=== PATIENT | male | born 1950 | race Caucasian/White ===

== ENCOUNTER 2020-02-15 10:35 | Outpatient (CLI) | payer MEDICARE, SELFPAY ==
--- NOTE | ~2020-02-15 | XR_ITS ---
XR foot LT min 3V DATE: 02/15/2020 11:07 INDICATION: Pain at base of fifth metatarsal bone TECHNIQUE: 4 views COMPARISON: None FINDINGS: There is mild plantar calcaneal enthesopathy without evidence of associated erosive change or periostitis. No fracture or dislocation, periosteal reaction or bone destruction. IMPRESSION: Plantar calcaneal enthesopathy Reviewed, dictated and finalized at location A.
== END 2020-02-15 10:36 | disposition home or self-care (01) ==
PROVIDERS: PCP Family Medicine Adolescent Medicine; Visit Provider Family Medicine Adolescent Medicine
DX: M79.672 Pain in left foot (principal); M77.32 Calcaneal spur, left foot
CPT/HCPCS: 73630

== ENCOUNTER → 2022-06-18 12:22 | Outpatient (CLI) | payer MEDICARE, SELFPAY ==
--- NOTE | ~2022-06-18 | XR_ITS ---
XR chest 2V 06/18/2022 12:32 Indication: Worsening cough Procedure: 2 view chest Comparison: 12/06/2008 Findings: Heart size normal. No focal air space disease, pulmonary edema, pleural effusion or suspect ed pneumothorax. Impression: 1: No acute cardiopulmonary disease. Reviewed, dictated and finalized at location A. Impression: 1: No acute cardiopulmonary disease.
== END ==
PROVIDERS: PCP Family Medicine Adolescent Medicine; Visit Provider Family Medicine Adolescent Medicine
DX: R05.9 Cough, unspecified (principal); R06.00 Dyspnea, unspecified
CPT/HCPCS: 71046

== ENCOUNTER 2022-06-30 08:01 | Outpatient (CLI) | payer MEDICARE, SELFPAY ==
--- NOTE | 2022-07-06 15:16 | WPDPFTINT ---
PFT Procedure Performed PFT Procedure Performed Plethysmography (Lung Vol) Diffusing Cap (DLCO) Flow Vol Loop Spirometry w/o Bronchodil PFT Interpretation DOS: 06/30/2022 REQUESTING: Dr Delarosa REASON FOR TESTING: Dyspnea PULMONARY FUNCTION TESTS Results are reliable and reproducible. Spirometry: FEV1 1.83 L, 54%, moderately decreased. FVC 3.58 L, 79% normal. FEV1/FVC is decreased 51% consistent with airflow obstruction. No bronchodilator was given. Lung volumes: Total lung capacity 8.16 L, 107%, normal. Residual volume 4.58 L, 172%, consistent with severe air trapping. RV/TLC 56% increased consistent with air trapping. Airway resistance is increased, 601% Diffusion: DLCO 21.6, 81%, normal. DLCO/VA 3.71, 101%, normal. Flow volume loop: There is coving of the expiratory limb which is consistent with airflow obstruction. IMPRESSION: There is a moderate obstructive ventilatory impairment, severe air trapping with normal diffusion. No bronchodilator was given. No prior study for comparison. Angela Montero MD
== END 2022-06-30 08:02 | disposition home or self-care (01) ==
LOC: ANHPFT 08:03
PROVIDERS: PCP Family Medicine Adolescent Medicine; Visit Provider Family Medicine Adolescent Medicine
DX: R06.00 Dyspnea, unspecified (principal)
CPT/HCPCS: 94375; 94726; 94729

== ENCOUNTER 2022-09-25 16:41 | Emergency (ER) | payer MEDICARE, SELFPAY ==
[2022-09-25 16:52] VITALS: BP 146/68; PULSE 96; RESP 16; TEMP 37; O2SAT 98
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
== END 2022-09-25 17:20 | disposition home or self-care (01) ==
PROVIDERS: Emergency Provider Nurse Practitioner; PCP Family Medicine Adolescent Medicine
DX: S71.112A Laceration without foreign body, left thigh, initial encounter (principal); W26.8XXA Contact with other sharp object(s), not elsewhere classified, initial encounter; Z87.891 Personal history of nicotine dependence; I25.10 Atherosclerotic heart disease of native coronary artery without angina pectoris; Z95.5 Presence of coronary angioplasty implant and graft
CPT/HCPCS: 12002; 99212; G0463

== ENCOUNTER 2024-06-26 14:45 | Outpatient (RCR) | payer MEDICARE, SELFPAY ==
--- NOTE | 2024-05-30 16:42 | PTOPEVAL1 ---
Assessment and note entered by Laura Roberts, PT, DPT Evaluation Information Assessment Status Evaluation Diagnosis L side lumbar radiculopathy ICD-10 Condition Codes (PT) Pain in low back M54.50,M54.16,Difficulty Walking R26.2 Subjective Information Pt reports a long history of L sided low back pain with pain going down into his L leg, to his calf. He states it has gotten worse in the last year. He got an MRI and x-ray done and was referred to pain management. He was going to have a procedure on his back and ended up getting diagnosed with leukemia. He is now in a good medication routine and it is well controlled. He ended up getting the back procedure, without any relief. He states in the year he has been more inactive, still has back pain, and is limited in how much he can walk. He states he can stand no longer than 10 mins at a time. He declines any falls. He would like to be able to walk for 15-20 mins. Reported Pain Level Pain Score 2: Self Report Assessment PT Clinical Summary Pt presents to therapy today for his initial evaluation with a diagnosis of L sided sciatic pain. Today he demonstrates limited ROM of his L knee and R hip passively, and has muscle tightness with limited range of his L piriformis. During ambulation he demonstrates a R midfoot collapse, limited knee extension, and a lateral trunk lean. Upon evaluation he has decreased lumbar mobility a had a asymmetric pelvis that was able to be corrected with muscle energy techniques. Skilled therapy services services are indicated to address the deficits noted above, to improved movement mechanics, to manage pain, and to progress towards therapy goals. Plan of Care Interventions Electrical Stimulation,Gait Training,Hot Pack/Cold Pack,Manual Therapy,Neuro Re-education,Patient/ Caregiver Educati,Therapeutic Activities, Therapeutic Exercise PT Services Indicated Yes Treatment Frequency and 2x/wk for 10 visits Duration These treatments will address the objective and functional deficits as defined above. The patient will be advanced safely and appropriately in order for the patient to progress towards his/her prior level of function. Additional exercises will be introduced and as well as a comprehensive home exercise program upon discharge, if needed, ?to ensure carryover of functional gains achieved in the clinic. This treatment plan has been reviewed and agreement upon by the patient.
--- NOTE | 2024-05-30 16:42 | OPREHPOC ---
Outpatient Therapy Plan of Care This is a Multidisciplinary Plan of Care that may contain components documented by all disciplines (PT, OT, and ST.) PT Problem 1 PT Problem #1 Knowledge Deficit PT Goal 1 Goal / Goal Update Pt to be IND with issued HEP PT Problem 2 PT Problem #2 Pain PT Goal 1 Goal / Goal Update Pt to report back pain no greater than 3/10 in the last week. Target Visit 10 PT Goal 2 Goal / Goal Update Pt to report 75% improvement in overall symptoms. Target Visit 10 PT Problem 3 PT Problem #3 Impaired Gait PT Goal 1 Goal / Goal Update Pt to demonstrate a equal stride length with upright trunk posture. Target Visit 10 PT Goal 2 Goal / Goal Update Pt to report being able to walk for 30 mins prior to needing to rest d/t pain. Target Visit 10 PT Problem 4 PT Problem #4 Impaired Flexibility PT Goal 1 Goal / Goal Update Pt to report equal stretch sensation on his piriformis. Target Visit 10 PT Problem 5 PT Problem #5 Impaired Sensation PT Goal 1 Goal / Goal Update Pt to decline radicular symptoms in the last week. Target Visit 10
--- NOTE | 2024-06-26 15:28 | PTOPDC ---
Assessment and note entered by Laura Roberts, PT, DPT Evaluation Information Assessment Status Discharge Diagnosis L side lumbar radiculopathy ICD-10 Condition Codes (PT) Pain in low back M54.50,M54.16,Difficulty Walking R26.2 Subjective Information Pt states therapy is not working, he believes his knee is the issue. He reports good compliance with his HEP and plans to continue these until he can get into an ortho to look at this knee. Reported Pain Level Pain Score 5: Self Report Assessment PT Clinical Summary Pt has completed 8 visits of skilled therapy without any notable changes. Pt plans to return to MD to determine next steps, D/c to HEP per request.
== END 2024-06-27 07:56 | disposition home or self-care (01) ==
LOC: ANHGOSHPT 14:45
PROVIDERS: PCP Family Medicine Adolescent Medicine; Visit Provider Family Medicine Adolescent Medicine
DX: M54.32 Sciatica, left side (principal); R29.898 Other symptoms and signs involving the musculoskeletal system
CPT/HCPCS: 97110; 97140; 97161; 97530

== ENCOUNTER 2024-11-15 08:00 | Outpatient (RCR) | payer MEDICARE, SELFPAY ==
--- NOTE | 2024-10-12 11:31 | OPREHPOC ---
Outpatient Therapy Plan of Care This is a Multidisciplinary Plan of Care that may contain components documented by all disciplines (PT, OT, and ST.) PT Problem 1 PT Problem #1 Knowledge Deficit PT Goal 1 Goal / Goal Update 1. Pt to be IND with issued HEP . Target Visit 10 PT Problem 2 PT Problem #2 Impaired Range of Motion PT Goal 1 Goal / Goal Update 1. Pt to improve active knee flexion ROM to 120 deg Target Visit 10 PT Problem 3 PT Problem #3 Impaired Gait PT Goal 1 Goal / Goal Update 1. pt to ambulate with equal heel strike during gait on level surface 2. Pt to report being able to walk for 1 mile without an increase in pain or limp 3. Pt to navigate stairs with a reciprocal pattern without need for UE support
--- NOTE | 2024-10-12 11:31 | PTOPEVAL1 ---
Assessment and note entered by Laura Roberts, PT, DPT Evaluation Information Assessment Status Evaluation Diagnosis L TKA ICD-10 Condition Codes (PT) Pain in left knee M25.562,Difficulty Walking R26.2 ,Abnormalities of gait and mobility R26.9,Weakness R53.1,Aftercare following joint replacement surgery Z47.1 Onset 09/07/24 Subjective Information Pt had a L TKA on 09/07/24. He states things are overall going pretty well. Has difficulty sleeping at night d/t pain, going up/down stairs, and walking far distances. He has been using a recumbent bike for 5 mins a day. He has 14 steps to get into his house from the garage. He is still taking prescription pain medication at night to sleep. Pt states he would like to be able to walk a mile for exercise. Reported Pain Level Pain Score 2: Self Report Assessment PT Clinical Summary Pt presents to therapy today for his initial evaluation following a R TKA on 09/07/24. Today he demonstrates a mild decrease in ROM from normal values, gait deviations, pitting edema, and decreased functional mobility. He demonstrates deviations during stairs climbing and ambulation on level ground. Skilled therapy services are indicated to address the deficits noted above, to improve mobility, and to improve functional mobility. Plan of Care Interventions Electrical Stimulation,Gait Training,Hot Pack/Cold Pack,Intermittent Compression Pump,Manual Therapy ,Neuro Re-education,Patient/Caregiver Education, Therapeutic Activities,Therapeutic Exercise PT Services Indicated Yes Treatment Frequency and 2x/wk for 8 visits Duration These treatments will address the objective and functional deficits as defined above. The patient will be advanced safely and appropriately in order for the patient to progress towards his/her prior level of function. Additional exercises will be introduced and as well as a comprehensive home exercise program upon discharge, if needed, ?to ensure carryover of functional gains achieved in the clinic. This treatment plan has been reviewed and agreement upon by the patient.
--- NOTE | 2024-10-25 10:45 | PCPTNOTE ---
Patient was canceled this date due to therapist being out of clinic with illness.
--- NOTE | 2024-11-07 09:23 | PCPTNOTE ---
Patient called & cancelled scheduled appointment this date due. He has been rescheduled.
--- NOTE | 2024-11-15 09:49 | OPREHPOC ---
Outpatient Therapy Plan of Care This is a Multidisciplinary Plan of Care that may contain components documented by all disciplines (PT, OT, and ST.) PT Problem 1 PT Problem #1 Knowledge Deficit PT Goal 1 Goal / Goal Update 1. Pt to be IND with issued HEP . Target Visit 10 Progress Met PT Problem 2 PT Problem #2 Impaired Range of Motion PT Goal 1 Goal / Goal Update 1. Pt to improve active knee flexion ROM to 120 deg 11/15/24: 1. progressing, 110 deg Target Visit 10 Progress Partially Met PT Problem 3 PT Problem #3 Impaired Gait PT Goal 1 Goal / Goal Update 1. pt to ambulate with equal heel strike during gait on level surface 2. Pt to report being able to walk for 1 mile without an increase in pain or limp 3. Pt to navigate stairs with a reciprocal pattern without need for UE support 11/15/24: 1. met 2. progressing 3. progressing Progress Partially Met
--- NOTE | 2024-11-15 09:49 | PTOPDC ---
Assessment and note entered by Laura Roberts, PT, DPT Evaluation Information Assessment Status Discharge Diagnosis L TKA ICD-10 Condition Codes (PT) Pain in left knee M25.562,Difficulty Walking R26.2 ,Abnormalities of gait and mobility R26.9,Weakness R53.1,Aftercare following joint replacement surgery Z47.1 Onset 09/07/24 Subjective Information Pt states his knee is doing pretty well, he reports full movement with some stiffness in the morning. Has some mild discomfort with stairs. States he is still limited compared to where he would like to be. His back and hip limit his activity. States prior he was walking a mile, and now can only tolerate about 4 mins of walking. Reported Pain Level Pain Score 0: Self Report Assessment PT Clinical Summary Pt presents to therapy today for his progress report following 8 visits of skilled therapy following a R TKA on 09/07/24. Today he demonstrates good functional knee ROM and strength . He continues to have gait deviations but this is limited by his R hip. His HEP was progressed to address deficits of hip strength and ROM. He has met or progressed well towards all of his therapy goals and no longer requires skilled services. He will be discharged at this time. Plan of Care PT Services Indicated No
== END 2024-12-26 10:28 | disposition home or self-care (01) ==
LOC: ANHGOSHPT 08:00
PROVIDERS: PCP Family Medicine Adolescent Medicine
DX: Z47.1 Aftercare following joint replacement surgery (principal); Z96.652 Presence of left artificial knee joint
CPT/HCPCS: 97016; 97110; 97112; 97161; 97530

== ENCOUNTER 2025-08-01 05:39 | Emergency (ER) | payer MEDICARE, SELFPAY ==
--- NOTE | ~2025-08-01 | CT_ITS ---
CT ABDOMEN AND PELVIS WITHOUT CONTRAST Clinical History: right flank pain Comparison: CTA abdomen pelvis 11/07/2015 Technique: Unenhanced axial images lung bases to symphysis pubis Coronal, sagittal reformats CT images acquired with automatic exposure control for dose reduction DLP: 696 mGy-cm Findings: Without intravenous contrast, sensitivity for detecting visceral parenchymal abnormalities decreased. Lung bases: Clear. Visualized heart and pericardium: Coronary artery calcification. Liver: Small cyst segment 2. Gallbladder: Stones. Spleen: Unremarkable. Pancreas: Unremarkable. Adrenal glands: Unremarkable. Kidneys: Right kidney- No hydronephrosis. No renal stones. Left kidney- No hydronephrosis. 2 mm calcification appears vascular. Distal esophagus/stomach: Unremarkable. Small bowel loops: Normal caliber and wall thickness. Colon: Normal caliber and wall thickness. Appendix not seen. Nodes: No enlarged nodes. Peritoneum: No ascites. No free intraperitoneal air. Urinary bladder: Unremarkable. Prostate: Unremarkable. Bones: No acute bony abnormality. Soft tissues: Right inguinal hernia repair. Unopacified abdominal aorta: No aneurysmal dilatation. Bifurcating endograft. Atherosclerotic disease. IMPRESSION: 1. No acute findings. Reviewed, dictated and finalized at location R. CAL INSTRUMENTS ASSEMBLER IMPRESSION: 1. No acute findings.
[2025-08-01 06:07] LABS: Hematocrit 38.9 % (42.0-52.0); Hemoglobin 13.1 g/dL (14.0-18.0); Immature Granulocyte Percent A 0.4 % (0-0.5); Lymphocytes Absolute Auto 3.21 K/mm3 (0.9-3.2); Mean Corpuscular HGB Conc 33.7 g/dl (32-36); Mean Corpuscular Hemoglobin 32.4 pg (26-34); Mean Corpuscular Volume 96.3 fl (80-100); Nucleated Red Blood Cells Absolute Auto 0.000 K/mm3 (0.0-0.012); Nucleated Red Blood Cells Perc 0.0 % (0.0-0.2); Platelet Count Result 181 k/mm3 (150-375); Red Blood Count 4.04 M/mm3 (4.6-6.20); White Blood Count 7.9 K/mm3 (4.5-10.0)
[2025-08-01 06:26] LABS: Alanine Aminotransferase 22 U/L (6-50); Albumin Level 4.5 g/dL (3.5-5.1); Alkaline Phosphatase 69 U/L (38-126); Anion Gap 9 mmol/L (4-12); Aspartate Amino Transferase 35 U/L (17-59); Bilirubin,Total 0.8 mg/dL (0.2-1.3); Blood Urea Nitrogen 26 mg/dL (9-20); Calcium 9.2 mg/dL (8.4-10.2); Carbon Dioxide 28 mmol/L (22-30); Chloride 103 mmol/L (98-107); Estimated CRCL calculation 60 ml/min; Estimated Glomerular Filt Rate > 60; Glucose 115 mg/dL (65-110); Lipase 107 U/L (23-300); Potassium 3.8 mmol/L (3.4-5.0); Sodium 140 mmol/L (137-145); Total Protein 7.5 g/dL (6.3-8.2)
[2025-08-01 06:55] LABS: Add Urine Microscopic? NO; Appearance Urine Clear (Clear); Glucose Urine UA Negative (Negative); Leukocyte Esterase Ur Negative LEU/UL (Negative); Nitrate Urine Negative (Negative); Specific Grav Ur 1.021 (1.001-1.035)
[2025-08-01 07:16] VITALS: BP 166/79; PULSE 72; RESP 18; O2SAT 100
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
--- OUTSIDE RECORDS SUMMARY | 2025-08-01 07:24 | XMS_ITS | Encounter Summary ---
Author Organization [facility] Address [address] [place] [address] Care Team Providers Care Intermediate Project Manager Name Role Phone Unavailable Primary Care Provider Unavailabl e Encounter Details Date Type Department Care Team (Late st Contact Info) Description 01/08/2021 Lab Requisition [facility] Derm[facility] Lab [address] [place] [address] Lane Almonte MD [address] [place] [address] Social History Tobacco Use Types Packs/Day Years Used Date Smoking Tobacco: Never Assessed Sex and Gender Information Value Date Recorded Sex Assigned at Not on file 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 Gender Identity Not on file Sexual Orientation Not on file documented as of this encounter Plan of Treatment Not on file documented as of this encounter Procedures Procedure Name Priority Date/Time Associated Diagnosis Comments DERMATOPATHOLOGY Routine 01/07/2021 12:0 0 AM CDT documented in this encounter Results * DERMATOPATHOLOGY (01/07/2021 12:00 AM CDT) Case Report Dermatopathology Report Case: [id number] Authorizing Provider: Lane Almonte MD Collected: 01/07/2021 12:00 AM Ordering Location: [facility] Derm[facility] Received: 01/08/2021 12:38 PM Pathologist: Anju Flores MD Specimen: Skin, right mid lat back 2:30 PM CDT DERMATOPATHOLOGY LABORATORY Final Diagnosis Specimen A. SKIN, right mid lat back: SQUAMOUS CELL CARCINOMA IN SITU, PRESENT AT THE BASE OF THE SPECIMEN (D04.5) EPIDERMAL NECROSIS SUGGESTIVE OF EXCORIATION (L98.499) (see microscopic description and comment) 04/29/202 1 2:30 PM CDT DERMATOPATHOLOGY LABORATORY at 1430 CDT Clinical History R/O ISK vs other 1 2:30 PM CDT DERMATOPATHOLOGY LABORATORY Gross Description Specimen A: Received is one formalin filled container labeled with the patient's name and designated right mid lat back. The specimen consists of a shave biopsy measuring 9x7x2 and 7x5x3 mm. Jar 0. 1 2:30 PM CDT DERMATOPATHOLOGY LABORATORY Microscopic Description Specimen A. SKIN, right mid lat back: The epidermis shows parakeratosis, full thickness disorderly maturation of keratinocytes, mitoses at different levels, and dyskeratotic cells. The lesion extends to the base of the biopsy. The epidermis is focally necrotic and covered with a scale-crust. There is fibrin at the base. COMMENT: An invasive squamous cell carcinoma cannot be ruled out. 1 2:30 PM CDT DERMATOPATHOLOGY LABORATORY Disclaimer An external and internal positive and negative controls are appropriate for the histochemical, immunohistochemical and immunofluorescence stain(s) in this case (if any), except where stated explicitly. The performance characteristics of the stain(s) cited in this report were developed and its performance characteristic determined by the Dermatopathology Laboratory at [facility], directed by Dr. Leatha Anderson. These tests need not be, and therefore are not, approved by the [place] Food and Drug Administration. The tests are used for clinical purposes. Billing Codes Specimen Charges Stain Charges 52943 1 1 2:30 PM CDT DERMATOPATHOLOGY LABORATORY Embedded Images 1 2:30 PM CDT DERMATOPATHOLOGY LABORATORY Pathology/Cytolog y TISSUE SPECIMEN FROM SKIN / Unknown 01/07/2021 01/08/2021 12:[address] Almonte MD LAB - PATHOLOGY/CYTOLOGY ORD ERABLES Final Result DERMATOPATHOLOGY LABORATORY [facility] - Department of Dermatology [address], [address] [phone] documented in this encounter Visit Diagnoses Not on filedocumented in this encounter
--- OUTSIDE RECORDS SUMMARY | 2025-08-01 07:25 | XMS_ITS ---
Author Organization [facility] Address [address] [place] [address] Care Team Providers Care Case Maker Name Role Phone Zachariah Mcintosh MD Unavailable [phone] Lester Delarosa MD Primary Care Prov ider Lydia Ram NP Unavailable Jason Solis MD Unavailable [phone] Larry Henry MD Unavailable [phone] Active Problems Problem Noted Date Diagnosed Date Arthritis of left knee 09/07/2024 Primary osteoarthritis of left knee 07/13/2024 Primary osteoarthritis of right knee 05/22/2024 Sacroiliitis 03/08/2024 Lumbar radiculopathy 12/09/2023 CML (chronic myeloid leukemia) 12/06/2023 Other chronic pain 11/29/2023 Spinal stenosis of lumbar re gion with neurogenic claudication 11/29/2023 Radiculopathy, lumbosacral region 11/29/2023 Mixed hyperlipidemia 08/29/2021 Ectopic beats 02/21/2021 Preoperative clearance 08/16/2020 Obesity (BMI 30.0-34.9) 07/23/2017 Abdominal aortic aneurysm (AAA) without rupture 12/03/2016 Assessment & Plan (07/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 Continue aspirin Lipitor and good blood pressure control. Follow-up in 1 year for annual surveillance History of coronary artery stent placement 06/23 Overview (12/14/2018): Patient had a right coronary artery stent placement in 2008. Last stress test in April 2016 is negative for ischemia. Abnormal EKG 06/22/2016 Aortic aneurysm 06/22/2016 Overview (12/14/2018): Status post repair and followed by Dr. Lou Assessment & Plan (07/14/2022 2:47 PM CDT): Patient is status post aortic repair on 06/04/2010. His previous aneurysm measured 3.0 x 3.2 CTA and currently measures 3.3 x 3.3 cm by CTA. He denies any abdominal side or back pain or any claudication pain to the lower extremities. He remains compliant with medications. Seen with Dr. Lou. Plan: Return in 1 year for routine surveillance with an aortic duplex. Peripheral vascular disease 06/22/2016 CAD (coronary artery disease) 06/22/2016 Hypertension 07/22/2012 Overview (12/14/2018): Hypertension, benign Coronary arteriosclerosis in [place] artery 07/22 Overview (12/17/2016): Coronary atherosclerosis of [place] coronary artery Current Treatment and Therapy Plans Asciminib PO 28 Day Cycles - CML* Plan Start Date:05/21/2025 Plan Provider:Jason Solis MD Linked Problems CML (chronic myeloid leukemi a) Treatment Medications Current Day (Day 1 , Cycle 1 - Planned for 05/21/2025) Next Day (Day 15, Cycle 1 - Planned for 06/04/2025) asciminib (SCEMBLIX) asciminib (SCEMBLIX ) 40 mg tablet No medications scheduled. Imatinib Daily - CML* Plan Start Date:01/23/2024 Plan Provider:Jason Slois MD Linked Problems CML (chronic myeloid leukemi a) Treatment Medications Current Day (Day 1 , Cycle 8 - Planned for 05/07/2025) Next Day (Additional Day, Cycle 8 - Planned for 05/14/2025) imatinib (GLEEVEC) No medications scheduled. No medications scheduled. Past Treatment and Therapy Plans Oncology Chemotherapy Treatment Plan Name Start Date Discontinue Date Treatment Medications Discontinue Reason Plan Provider Cycles Dasatinib Daily - CML 12/06/2023 01/24/2024 daSATinib (SPRYCEL) Toxicity/Compl ication Will, Jason Mehta MD 2 of 12 cycles started Lifetime Dose Tracking * Chemical Lifetime Dose Automatic Entry Manual Entr y Fluoro Time 1.653 minutes 1.653 minutes 0 minutes Air kerma at the reference point (Ka,r) 55.707 mGy 5 5.707 mGy 0 mGy DLP 3,688 mGycm 3,688 mGycm 0 mGycm Resolved Problems Problem Noted Date Diagnosed Date Resolved Date Dyslipidemia 01/20/2019 08/29/2021
--- OUTSIDE RECORDS SUMMARY | 2025-08-01 07:25 | XMS_ITS | Encounter Summary ---
Author Organization [facility] Care Team Providers Care Dobie Worker Name Role Phone Lester Delarosa MD Primary Care Prov ider Zachariah Mcintosh MD Unavailable [phone] Larry Henry MD Primary Care Provider [phone] Lester Delarosa MD Primary Care Prov ider Uy, Jason Mehta MD Unavailable [phone] Lydia Ram NP Unavailable [phone] Uy, Jason Mehta MD Unavailable [phone] Uy, Jason Mehta MD Unavailable [phone] Larry Henry MD Unavailable [phone] Encounter Details Date Type Department Care Team (Latest Contact Info) Description 12/03/2015 Orders Only [facility] CLINCON[facility] ProviderPatricia MD [address] [place] [address] Social History Tobacco Use Types Packs/Day Years Used Date Smoking Tobacco: Former Cigarettes Q uit: 09/13/2007 Alcohol Use Standard Drinks/Week Comments Yes 0 (1 standard drink = 0.6 oz pur e alcohol) Sex and Gender Information Value Date Recorded Sex Assigned at Not on file 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 us Historical Provider [facility] SHAHANA BEJARANO Final Result documented in this encounter Visit Diagnoses Not on filedocumented in this encounter Additional Health Concerns Infection Onset Date Last Indicated Resolved Time COVID: Suspected 01/18/2024 01/18/2024 01/18/2024 6:18 PM CDT documented as of this encounter Care Teams Dobie Worker Relationship Specialty Start Date End Date Lester Delarosa MD PCP - General 04/17/13 10/16/20 Larry Henry MD [address] [place] [address] [place] [address] PCP - General 10/17/20 10/28/20 Lester Delarosa MD PCP - General 10/29/20 Zachariah Mcintosh MD [address] [place] [address] [address] Consulting Physician Cardiology 09/09/20 Jason Solis MD [address] [place] [address] [place] [address] Medical Oncologist/Strategic Intelligence Officer Medical Oncology 12/29/23 06/18/25 Lydia Ram, [place] [address] [address] Nurse Practitioner Watch Crystal Cutter 05/09/24 Jason Solis MD [address] [place] [address] IM BONE MARROW TRANSPLANT, 5TH, [address] [place] [address] Medical Oncologist/Strategic Intelligence Officer Medical Oncology 07/27/24 06/18/25 Jason Solis MD [address] DIV IM BONE MARROW TRANSPLANT, [address] [place] [address] Medical Oncologist/Strategic Intelligence Officer Medical Oncology 07/27/24 Larry Henry MD [address] [address] Consulting Physician Orthopedic Surgery 09/08/24 documented as of this encounter
--- OUTSIDE RECORDS SUMMARY | 2025-08-01 07:25 | XMS_ITS | Encounter Summary ---
Author Organization [facility] Care Team Providers Care Real Estate Sales Manager Name Role Phone Lester Delarosa MD Primary Care Prov ider Zachariah Mcintosh MD Unavailable [phone] Larry Henry MD Primary Care Provider [phone] Lester Delarosa MD Primary Care Prov ider Uy, Jason Mehta MD Unavailable [phone] Lydia Ram NP Unavailable [phone] Uy, Jason Mehta MD Unavailable [phone] Uy, Jason Mehta MD Unavailable [phone] Larry Henry MD Unavailable [phone] Encounter Details Date Type Department Care Team (Latest Contact Info) Description 12/14/2015 Orders Only [facility] CLINCONV ProviderPatricia MD [address] [place] [address] Social History Tobacco Use Types Packs/Day Years Used Date Smoking Tobacco: Former Cigarettes Q uit: 09/13/2007 Alcohol Use Standard Drinks/Week Comments Yes 0 (1 standard drink = 0.6 oz pur e alcohol) Sex and Gender Information Value Date Recorded Sex Assigned at Not on file 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 us Historical Provider Final Res ult documented in this encounter Visit Diagnoses Not on filedocumented in this encounter Additional Health Concerns Infection Onset Date Last Indicated Resolved Time COVID: Suspected 01/18/2024 01/18/2024 01/18/2024 6:18 PM CDT documented as of this encounter Care Teams Real Estate Sales Manager Relationship Specialty Start Date End Date Lester Delarosa MD PCP - General 04/17/13 10/16/20 Larry Henry MD [address] [address] [place] [address] [place] [address] PCP - General 10/17/20 10/28/20 Lesetr Delarosa MD PCP - General 10/29/20 Zachariah Mcintosh MD [address] [facility] [facility] [place] [address] [address] Consulting Physician Cardiology 09/09/20 Jason Solis MD [address] [facility] [facility] [facility] [address] [place] [address] [place] [address] Medical Oncologist/Physical Therapy Aid Medical Oncology 12/29/23 06/18/25 [place] [address] [address] Nurse Practitioner Belt And Link Assembly Supervisor 05/09/24 Jason Solis MD [address] [place] [address] IM BONE MARROW TRANSPLANT, 5TH, [address] [address] Medical Oncologist/Physical Therapy Aid Medical Oncology 07/27/24 06/18/25 Jason Solis MD [address] DIV IM BONE MARROW TRANSPLANT, [address] [place] [address] Medical Oncologist/Physical Therapy Aid Medical Oncology 07/27/24 Larry Henry MD [facility] [address] [address] Consulting Physician Orthopedic Surgery 09/08/24 documented as of this encounter
--- OUTSIDE RECORDS SUMMARY | 2025-08-01 07:25 | XMS_ITS | Clinical Summary ---
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 with mild cord compression. No visible cord signal abnormality on motion limited images. Correlate clinically for myelopathy. Severe bilateral neural foraminal stenosis at C4-C5 with exiting C5 nerve root impingements caused by uncovertebral arthropathy. Dictated by: Jose De Jesus Camacho MD The radiology attending physician has personally reviewed this study, and had reviewed and/or edited this written report and agrees with it. Electronically signed by: Bahman Jimenez MD Narrative 07/14/2025 8:11 AM CDT EXAMINATION: Magnetic resonance imaging (MRI) of the cervical spine without contrast HISTORY: Evaluate for cervical spinal stenosis TECHNIQUE: Multiplanar multi-weighted MRI of the cervical spine was performed without intravenous contrast using the standard protocol. COMPARISON: None Available. FINDINGS: Multilevel stepwise retrolisthesis from C3 to C5. No suspicious marrow signal abnormality. No acute fracture is identified. The craniocervical junction is normal. The visualized portions of the skull base and the posterior fossa are normal. No definite spinal cord signal abnormality. Multilevel disc desiccation and up to severe disc height loss, most pronounced at C3-C4 and C4-C5. No soft tissue abnormality is identified. Normal signal voids are present in the vertebral arteries. C2-C3: Posterior disc osteophyte complex There is moderate left facet arthropathy. There is moderate bilateral uncovertebral joint disease. There is moderate right and severe left neuroforaminal stenosis. There is no spinal canal stenosis. C3-C4: Posterior disc osteophyte complex with superimposed central disc protrusion. And ligamentum flavum infolding. There is mild bilateral facet arthropathy. There is moderate bilateral uncovertebral joint disease. There is moderate bilateral neuroforaminal stenosis. There is severe spinal canal stenosis with mild cord compression. C4-C5: Posterior disc osteophyte complex with superimposed central through right subarticular disc protrusion. Ligamentum flavum infolding. There is moderate bilateral facet arthropathy. There is severe bilateral uncovertebral joint disease. There is severe bilateral neuroforaminal stenosis. There is severe spinal canal stenosis with mild focal cord compression. C5-C6: Posterior disc osteophyte complex. There is moderate bilateral facet arthropathy. There is moderate bilateral uncovertebral joint disease. There is moderate bilateral neuroforaminal stenosis. There is mild spinal canal stenosis. C6-C7: Posterior disc osteophyte complex. There is mild bilateral facet arthropathy. There is moderate bilateral uncovertebral joint disease. There is mild bilateral neuroforaminal stenosis. There is mild spinal canal stenosis. C7-T1: The disk is normal in configuration. There is mild bilateral facet arthropathy. There is no uncovertebral joint disease. There is no neuroforaminal stenosis. There is no spinal canal stenosis. Procedure Note Bahman Jimenez MD PhD - 07/14/2025 EXAMINATION: Magnetic resonance imaging (MRI) of the cervical spine without contrast HISTORY: Evaluate for cervical spinal stenosis TECHNIQUE: Multiplanar multi-weighted MRI of the cervical spine was performed without intravenous contrast using the standard protocol. COMPARISON: None Available. FINDINGS: Multilevel stepwise retrolisthesis from C3 to C5. No suspicious marrow signal abnormality. No acute fracture is identified. The craniocervical junction is normal. The visualized portions of the skull base and the posterior fossa are normal. No definite spinal cord signal abnormality. Multilevel disc desiccation and up to severe disc height loss, most pronounced at C3-C4 and C4-C5. No soft tissue abnormality is identified. Normal signal voids are present in the vertebral arteries. C2-C3: Posterior disc osteophyte complex There is moderate left facet arthropathy. There is moderate bilateral uncovertebral joint disease. There is moderate right and severe left neuroforaminal stenosis. There is no spinal canal stenosis. C3-C4: Posterior disc osteophyte complex with superimposed central disc protrusion. And ligamentum flavum infolding. There is mild bilateral facet arthropathy. There is moderate bilateral uncovertebral joint disease. There is moderate bilateral neuroforaminal stenosis. There is severe spinal canal stenosis with mild cord compression. C4-C5: Posterior disc osteophyte complex with superimposed central through right subarticular disc protrusion. Ligamentum flavum infolding. There is moderate bilateral facet arthropathy. There is severe bilateral uncovertebral joint disease. There is severe bilateral neuroforaminal stenosis. There is severe spinal canal stenosis with mild focal cord compression. C5-C6: Posterior disc osteophyte complex. There is moderate bilateral facet arthropathy. There is moderate bilateral uncovertebral joint disease. There is moderate bilateral neuroforaminal stenosis. There is mild spinal canal stenosis. C6-C7: Posterior disc osteophyte complex. There is mild bilateral facet arthropathy. There is moderate bilateral uncovertebral joint disease. There is mild bilateral neuroforaminal stenosis. There is mild spinal canal stenosis. C7-T1: The disk is normal in configuration. There is mild bilateral facet arthropathy. There is no uncovertebral joint disease. There is no neuroforaminal stenosis. There is no spinal canal stenosis. 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 No visible cord signal abnormality on motion limited images. Correlate clinically for myelopathy. Severe bilateral neural foraminal stenosis at C4-C5 with exiting C5 nerve root impingements caused by uncovertebral arthropathy. Dictated by: Jose De Jesus Camacho MD The radiology attending physician has personally reviewed this study, and had reviewed and/or edited this written report and agrees with it. Electronically signed by: Bahman Jimenez MD [facility]ED[facility] Final Result * CT Thoracic Spine WO Contrast (07/13/2025 4:24 PM CDT) Anatomical Region Laterality Modality Spine N/A Computed Tomogra phy 07/13/2025 5:01 PM CDT Impressions 07/13/2025 5:10 PM CDT 1. Mild degenerative changes of the thoracic spine as described above. 2. Two right upper lobe nodules, including an unchanged 9 mm solid nodule and a slightly increased 7 mm groundglass nodule. Consider repeat chest CT in 6-12 months to assess stability. Dictated by: Dank Kim MD The radiology attending physician has personally reviewed this study, and had reviewed and/or edited this written report and agrees with it. Electronically signed by: Isrrael Brewer M.D. Narrative 07/13/2025 5:10 PM CDT EXAMINATION: CT of the thoracic spine without contrast HISTORY: Mid back pain TECHNIQUE: CT of the thoracic spine was performed according to standard protocol without intravenous contrast. COMPARISON: Thoracic spine MRI 05/24/2025, chest CT 01/18/2024 FINDINGS: There are 12 rib-bearing thoracic vertebra. Mild thoracic levocurvature. There is no acute fracture. Vertebral bodies are normal in height without compression fractures. Mild multilevel intervertebral disc height loss. 7 mm groundglass nodule in the right upper lobe (series 4 image 141), slightly increased compared to prior chest CT. Unchanged solid 9 mm right upper lobe nodule (series 4 image 119). Left upper lobe calcified granuloma. Biapical pleural-parenchymal scarring. Atherosclerotic calcifications of the thoracic aorta. Partially imaged endovascular stent graft in the abdominal aorta. Cholelithiasis without evidence of cholecystitis. Severe coronary artery calcifications. Partially imaged carotid artery bifurcations. Chronic right posterior 3rd and 5th-6th rib fractures. The disks are normal in configuration. There is mild multilevel facet hypertrophy. There is no high-grade neuroforaminal stenosis. There is no spinal canal stenosis. Partially imaged degenerative changes in the lower cervical spine. Procedure Note Isrrael Brewer MD PhD - 07/13/2025 EXAMINATION: CT of the thoracic spine without contrast HISTORY: Mid back pain TECHNIQUE: CT of the thoracic spine was performed according to standard protocol without intravenous contrast. COMPARISON: Thoracic spine MRI 05/24/2025, chest CT 01/18/2024 FINDINGS: There are 12 rib-bearing thoracic vertebra. Mild thoracic levocurvature. There is no acute fracture. Vertebral bodies are normal in height without compression fractures. Mild multilevel intervertebral disc height loss. 7 mm groundglass nodule in the right upper lobe (series 4 image 141), slightly increased compared to prior chest CT. Unchanged solid 9 mm right upper lobe nodule (series 4 image 119). Left upper lobe calcified granuloma. Biapical pleural-parenchymal scarring. Atherosclerotic calcifications of the thoracic aorta. Partially imaged endovascular stent graft in the abdominal aorta. Cholelithiasis without evidence of cholecystitis. Severe coronary artery calcifications. Partially imaged carotid artery bifurcations. Chronic right posterior 3rd and 5th-6th rib fractures. The disks are normal in configuration. There is mild multilevel facet hypertrophy. There is no high-grade neuroforaminal stenosis. There is no spinal canal stenosis. Partially imaged degenerative changes in the lower cervical spine. IMPRESSION: 1. Mild degenerative changes of the thoracic spine as described above. 2. Two right upper lobe nodules, including an unchanged 9 mm solid nodule and a slightly increased 7 mm groundglass nodule. Consider repeat chest CT in 6-12 months to assess stability. Dictated by: Dank Kim MD The radiology attending physician has personally reviewed this study, and had reviewed and/or edited this written report and agrees with it. Electronically signed by: Isrrael Brewer M.D. [facility] IMG CT PROCEDURES Final Result * DEXA Axial Skeleton Bone Density Multi Site (07/05/2025 1:40 PM CDT) Anatomical Region Laterality Modality Body N/A Radiographic Kamille ging Narrative 07/05/2025 7:55 PM CDT Patient Name: Osito Fan Date of : 1950 Date of scan: 07/05/2025 Bone mineral density was performed on a gloStream Discovery Densitometer. Based on machine cross-calibration and precision studies the least significant changes of this densitometer is 0.024 g/cm2 at the spine, 0.020 g/cm2 at the total proximal femur, and 0.014g/cm2 at the forearm. HISTORY: This is a 75 y.o. male with a history of leukemia. He reports that he has quit smoking. His smoking use included cigarettes. He started smoking about 40 years ago. He has a 45.6 pack-year smoking history. He has never used smokeless tobacco. Currently on treatment with calcium and vitamin D and current complaint of back pain and leg pain. INDICATIONS: Screening for osteoporosis and male over age 70. FINDINGS: BONE MINERAL DENSITY OF THE LUMBAR SPINE Bone Mineral Density (BMD) of the lumbar spine was measured from L1-L4 and the average density was calculated to be 1.297 gm/cm2. This corresponds to a T-score (standard deviations from the mean of young adults) of 1.9. There is no previous study available for comparison. BONE MINERAL DENSITY OF THE PROXIMAL FEMUR Bone Mineral Density (BMD) of the left hip total was found to be 0.745 gm/cm2. This corresponds to a T-score standard deviations from the mean of young adults of -1.9. Femoral neck is 0.643 gm/cm2 with a T-score (standard deviations from the mean of young adults) of -2.1. There is no previous study available for comparison. BONE MINERAL DENSITY OF THE FOREARM Bone Mineral density (BMD) of the right proximal 1/3 of the radius measures 0.784 gm/cm2. This corresponds to a T-score (standard deviations from the mean of young adults) of -0.6. There is no previous study available for comparison. A forearm bone density study was performed in addition to the routine study due to bilateral hip replacements and department forearm protocol SUMMARY: Bone mineral density shows evidence of low bone mass at the proximal femur and moderately increased fracture risk (Osteopenia). ADDITIONAL COMMENTS: Postmenopausal Women and Men Over 50: Diagnostic criteria: Osteoporosis: BMD at or below -2.5 T-score; Osteopenia (low bone mass): BMD between -1.0 and -2.5 T-score. If the patient has a history of a fragility fracture, a fracture that occurred with trauma equivalent to a fall from a standing position or less, then the diagnosis is osteoporosis regardless of bone density. The history and data sections of the bone mineral density scan were prepared by Raya Lopez(Oumar) BERTO who is accredited by the International Society of Clinical Densitometry. The overall patient assessment and scan interpretation were performed by Elizabeth El M.D. who is certified by the International Society of Clinical Densitometry. [id number] Rebeka Tobin [facility]ED[facility] Final Result * PSA diagnostic (06/26/2025 9:28 AM CDT) PSA-Total 0.95 <=6.20 ng/mL Comment: Interpretive Data AGE SEX REFERENCE INTERVAL 0 minutes-150 years Female None 0 minutes-49 years Male None 50-59 years Male 0-3.90 60-69 years Male 0-5.40 70-79 years Male 0-6.20 80-150 years Male 0-6.20 The Sravanthi PSA Total assay procedure was used. Results from different manufacturers or methods may not be comparable. Serial testing should be performed using the same method. Current interpretive data last revised 22. Blood 06/26/2025 9:28 AM CDT 06/26/2025 2:28 PM CDT Lester Delarosa MD LAB BLOOD ORDERABL ES Final Result [id number] [id number] [facility] Department [place] [address] * Hemoglobin A1c (06/26/2025 9:28 AM CDT) Hgb A1C 5.6 4.0 - 5.6 % Estimated Average Glucose 114 mg/dL LISHA ANAYA Comment: The ADA recommends reporting an estimated Average Glucose (eAG) with all Hemoglobin A1c results using the equation derived from a study of 507 normal and diabetic adults. Minority populations were underrepresented and children were not included. (Diabetes Care 31:3520-9024, 2008). The eAG is not equivalent to a fasting glucose. Blood 06/26/2025 9:28 AM CDT 06/26/2025 11:18 AM CDT Lester Delarosa MD LAB BLOOD ORDERABL ES Final Result [facility] [address] [facility] Department [place] [address] * eGFR (06/18/2025 12:28 PM CDT) eGFR 83 >=60 mL/min/1. 73 m2 Comment: Interpretive Data Reference Interval Normal >/= 90 mL/min/1.73m2 Mildly decreased* 60 - 89 mL/min/1.73m2 Mildly to moderately decreased 45 - 59 mL/min/1.73m2 Moderately to severely decreased 30 - 44 mL/min/1.73m2 Severely decreased 15 - 29 mL/min/1.73m2 Kidney Failure < 15 mL/min/1.73m2 *Relative to young adult level Estimated glomerular filtration rate is determined by the 2020 CKD-EPI equation recommended by the National Kidney Foundation (A Unifying Approach to GFR Estimation: Recommendations of the NKF-ASK Task Force on Reassessing the Inclusion of Race in Diagnosing Kidney Disease, JASN 202). The CKD-EPI equation should not be used for patients with unstable renal function and has not been validated in children and those over 70. Current interpretive data was last reviewed 2021. Blood 06/18/2025 12:2 8 PM CDT 06/18/2025 12:36 PM CDT Jason Solis MD LAB BLOOD ORDERABLES Final Re sult Performing Organization Address [facility] [place] [address] * Uric acid (06/18/2025 12:28 PM CDT) Uric acid 6.0 3.0 - 8.0 mg/dL Blood 06/18/2025 12:2 8 PM CDT 06/18/2025 12:36 PM CDT Jason Solis MD LAB BLOOD ORDERABLES Final Re sult Performing Organization Address [facility] [place] [address] * Lipase (06/18/2025 12:28 PM CDT) Lipase 35 10 - 99 Units/L Blood 06/18/2025 12:2 8 PM CDT 06/18/2025 12:36 PM CDT Jason Solis MD LAB BLOOD ORDERABLES Final Re sult Performing Organization Address [facility] Co de Phone Number [facility] [place] [address] * Lactate dehydrogenase (LD) (06/18/2025 12:28 PM CDT) Lactate dehydrogenase (LDH) 160 100 - 250 Units/L Blood 06/18/2025 12:2 8 PM CDT 06/18/2025 12:36 PM CDT Jason Solis MD LAB BLOOD ORDERABLES Final Re sult Performing Organization Address [facility] Co de Phone Number [facility] [place] [address] * Amylase (06/18/2025 12:28 PM CDT) Amylase 55 30 - 99 Units/L Blood 06/18/2025 12:2 8 PM CDT 06/18/2025 12:36 PM CDT Jason Solis MD LAB BLOOD ORDERABLES Final Re sult [facility] Department [place] [address] * Comprehensive metabolic panel (06/18/2025 12:28 PM CDT) Pathologist [facility] Sodium 140 135 - 145 mmol/L Potassium, pl 4.7 3.3 - 4.9 mmol/L [facility] Chloride 105 97 - 110 mmol/L [facility] CO2 26 22 - 32 mmol/L [facility] Anion gap 9 2 - 15 mmol/L [facility] BUN 19 6 - 25 mg/dL [facility] Creatinine 0.95 0.80 - 1.30 mg/dL [facility] Glucose 104 70 - 199 mg/dL [facility] Comment: Interpretive Data Fasting glucose >/= 126 mg/dl is diagnostic for diabetes. Fasting is defined as no caloric intake for at least 8 hours. Fasting glucose between 100 mg/dl to 125 mg/dl is diagnostic of prediabetes. In a patient with classic symptoms of hyperglycemia or hyperglycemic crisis, a random glucose >/= 200 mg/dl is diagnostic for diabetes. In the absence of unequivocal hyperglycemia, results should be confirmed by repeat testing. The classification and Diagnosis of Diabetes Diabetes Care 2021; 46: S19-S40. Current interpretive data was last revised 2022. Calcium 9.2 8.5 - 10.3 mg/dL [facility] Bilirubin, total 0.5 0.1 - 1.2 mg/dL [facility] Protein, pl 7.0 6.5 - 8.5 g/dL [facility] Albumin 4.3 3.5 - 5.0 g/dL [facility] Alk phos 74 40 - 130 Units/L [facility] ALT 22 7 - 55 Units/L [facility] AST 23 10 - 50 Units/L [facility] Blood 06/18/2025 12:2 8 PM CDT 06/18/2025 12:36 PM CDT us Jason Solis MD LAB BLOOD ORDERABLES Final Re sult [facility] Department [place] [address] * (ABNORMAL) BCR/ABL p210 Quantitative, PCR (06/18/2025 12:21 PM CDT) Pathologist [facility] BCR/ABL p210 Positive(A) [facility] BCR/ABL p210 % (IS) 0.41% [facility] BCR/ABL p210 Interpretation Positive: BCR::ABL1 major (p210) transcripts were detected. [facility] BCR/ABL p210 Specimen Blood [facility] BCR/ABL p210 Result Review Final report reviewed by: CHICHO Christianson, Fig Washer, on 06/20/2025 10:20:19 CDT. [facility] Comment: Interpretive Data A summary of previous BCR::ABL1 major quantitative RT-PCR results for this patient performed in the [facility] may be found as a cumulative laboratory report in the Results Review section of the Medical Record. Method: The quantitative BCR::ABL1 assay is performed on the GeneXpert (TraveDoc) platform. RNA is extracted, converted to cDNA, and BCR::ABL1 and ABL1 cDNA targets are quantified by real-time PCR amplification. Results are reported as the percentage ratio of BCR::ABL1 fusion transcripts to ABL1 transcripts (BCR::ABL1/ABL1) on the International Scale (Jam LAYTON, 2010). A BCR::ABL1 value of 0.1% on the International Scale represents a major molecular response in CML ([place] S, 2008). The analytical sensitivity of this assay is 0.0032% BCR::ABL1/ABL1. Due to assay non-linearity for the BCR::ABL1 p210 isoform at very high and low concentrations, results greater than 10% (above upper limit of quantification or ULOQ) will be reported as > 10% and results detected at less than 0.0032% (below lower limit of quantification or LLOQ) will be reported as < 0.0032% . Limitations: This test only detects the e13a2 and e14a2 BCR::ABL1 major isoforms. A negative result does not exclude the presence of the e1a2 (p190) BCR::ABL1 minor isoforms. False positive or negative results may occur with unusual BCR::ABL1 isoforms. FDA Comment: This test was developed and its performance characteristics determined by this [facility]. Peripheral blood testing has been cleared by the U.S. Food and Drug Administration (FDA). Alternative specimen types, including extracted RNA or bone marrow aspirates have not been cleared or approved by the U.S. Food and Drug Administration. FDA does not require those modifications to go through premarket FDA review. This test is used for clinical purposes. It should not be regarded as investigational or for research. This laboratory is certified under the Clinical Laboratory Improvement Amendments (CLIA) as qualified to perform high complexity clinical laboratory testing. Literature References: Dyllan S, Donn L, Derian N, et al. Desirable performance characteristics for BCR-ABL measurement on an international reporting scale to allow consistent interpretation of individual patient response and comparison of response rate between clinical trials. Blood 2008;113:4237-8669. Jam HE, Javier P, Ann P, et al. Establishment of the first World Health Organization International Genetic Reference Panel for quantification of BCR-ABL mRNA. Blood 2010;116:s363-903. GeneXpert BCR-ABL V2 Package Insert [id number], Rev B (July 2016). Xpert BCR-ABL Monitor, [id number], Rev A, January 2011. This test was performed at: [facility], [facility], [facility]#[id number], Jazmin King, Ph.D., [place], [address], [place] Current interpretive data was last revised 2023. Blood 06/18/2025 12:2 1 PM CDT 06/18/2025 1:50 PM CDT Jason Solis MD LAB GENETIC TESTING Final Res ult LISHA [facility] Department [place] [address] [facility] * Differential, auto (06/18/2025 12:21 PM CDT) Neutrophil abs 2.90 1.50 - 6.50 K/cumm Comment:Testing performed by : [facility], [address] [place] [phone] Lymphocyte abs 2.41 0.80 - 3.30 K/cumm CERNER [facility] Comment:Testing performed by : [facility], [address] [place] [phone] Monocyte abs 0.75 0.20 - 0.80 K/cumm CERNER BJ Comment:Testing performed by : [facility], [address] [place] [phone] Eosinophil abs 0.20 0.00 - 0.50 K/cumm CERNER BJ Comment:Testing performed by : [facility], [address] [place] [phone] Basophil abs 0.05 0.00 - 0.10 K/cumm CERNER BJ Comment:Testing performed by : [facility], [address] [place] [phone] Neutrophil pct 46.0 % CERNER BJ Comment: Interpretive Data Percent cell count reference ranges are not reported, since discordance with absolute values may lead to misinterpretation of CBC data. Current Interpretive Data was last revised on 2017. Testing performed by: [facility], [address] [place] [phone] Lymphocyte pct 38.1 % CERNER BJ Comment: Interpretive Data Percent cell count reference ranges are not reported, since discordance with absolute values may lead to misinterpretation of CBC data. Current Interpretive Data was last revised on 2017. Testing performed by: [facility], [address] [place] [phone] Monocyte pct 11.9 % CERNER BJ Comment: Interpretive Data Percent cell count reference ranges are not reported, since discordance with absolute values may lead to misinterpretation of CBC data. Current Interpretive Data was last revised on 2017. Testing performed by: [facility], [address] [place] [phone] Eosinophil pct 3.2 % LISHA BECKMAN Comment: Interpretive Data Percent cell count reference ranges are not reported, since discordance with absolute values may lead to misinterpretation of CBC data. Current Interpretive Data was last revised on 2017. Testing performed by: [facility], [address] [place] [address] Basophil pct 0.8 % LISHA BECKMAN Comment: Interpretive Data Percent cell count reference ranges are not reported, since discordance with absolute values may lead to misinterpretation of CBC data. Current Interpretive Data was last revised on 2017. Testing performed by: [facility], [address] [place] [phone] Blood 06/18/2025 12:2 1 PM CDT 06/18/2025 12:33 PM CDT us Jason Solis MD LAB BLOOD ORDERABLES Final Re sult LISHA BECKMAN [facility] Department [place] [address] * (ABNORMAL) CBC with auto differential (06/18/2025 12:21 PM CDT) WBC 6.31 3.80 - 9.90 K/cumm Comment:Testing performed by : [facility], [address] [place] [address] Hgb 12.3(L) 13.0 - 17.5 g/dL LISHA BECKMAN Comment:Testing performed by : [facility], [address] [place] [address] Hct 34.2(L) 38.9 - 50.3 % LISHA BECKMAN Comment:Testing performed by : [facility], [address] [place] [address] Plt 200 150 - 400 K/cumm CERNER [facility] Comment:Testing performed by : [facility], [address] [place] [address] MPV 6.4(L) 6.8 - 10.4 fL CERNER [facility] Comment:Testing performed by : [facility], [address] [place] [address] RBC 3.55(L) 4.30 - 5.80 M/cumm CERNER BJ Comment:Testing performed by : [facility], [address] [place] [address] MCV 96.4 81.3 - 96.4 fL CERSKYE [facility] Comment:Testing performed by : [facility], [address] [place] [address] MCH 34.6(H) 27.1 - 33.[address] [facility]:Testing performed by : [facility], [address] [place] [address] MCHC 35.9(H) 32.3 - 35.7 g/dL CERSKYE [facility] Comment:Testing performed by : [facility], [address] [place] [address] RDW CV 12.2 11.1 - 14.9 % [facility] Comment:Testing performed by : [facility], [address] [place] [address] NRBC abs 0.00 0.00 - 0.01 K/cumm [facility] Comment:Testing performed by : [facility], [address] [place] [address] Blood 06/18/2025 12:2 1 PM CDT 06/18/2025 12:33 PM CDT Jason Solis MD LAB BLOOD ORDERABLES Final Re sult [facility] Department [place] [address] * eGFR (06/04/2025 9:32 AM CDT) eGFR 89 >=60 mL/min/1. 73 m2 Comment: Interpretive Data Reference Interval Normal >/= 90 mL/min/1.73m2 Mildly decreased* 60 - 89 mL/min/1.73m2 Mildly to moderately decreased 45 - 59 mL/min/1.73m2 Moderately to severely decreased 30 - 44 mL/min/1.73m2 Severely decreased 15 - 29 mL/min/1.73m2 Kidney Failure < 15 mL/min/1.73m2 *Relative to young adult level Estimated glomerular filtration rate is determined by the 2020 CKD-EPI equation recommended by the National Kid[employer] (A Unifying Approach to GFR Estimation: Recommendations of the NKF-ASK Task Force on Reassessing the Inclusion of Race in Diagnosing Kidney Disease, JASN 2020). The CKD-EPI equation should not be used for patients with unstable renal function and has not been validated in children and those over 70. Current interpretive data was last reviewed 2021. Testing performed by: [address] [address] Blood 06/04/2025 9:32 AM CDT 06/04/2025 11:51 AM CDT us Jason Solis MD LAB BLOOD ORDERABLES Final Re sult [facility] [address] [facility] Department [place] [address] * (ABNORMAL) Differential, auto (06/04/2025 9:32 AM CDT) Neutrophil abs 2.60 1.50 - 6.50 K/cumm Comment:Testing performed by : [address] [address] Imm gran abs 0.01 0.00 - 0.10 K/cumm LISHA Comment:Testing performed by : [address] [address] Lymphocyte abs 2.10 0.80 - 3.30 K/cumm LISHA Comment:Testing performed by : [address] [address] Monocyte abs 0.87(H) 0.20 - 0.80 K/cumm [facility] Comment:Testing performed by : [address] [address] Eosinophil abs 0.26 0.00 - 0.50 K/cumm [facility] Comment:Testing performed by : [address], [place]., [address] Basophil abs 0.03 0.00 - 0.10 K/cumm [facility] Comment:Testing performed by : [address] [address] Neutrophil pct 44.3 % [facility] Comment: Interpretive Data Percent cell count reference ranges are not reported, since discordance with absolute values may lead to misinterpretation of CBC data. Current Interpretive Data was last revised on 2017. Testing performed by: [address] [address] Imm gran pct 0.2 % [facility] Comment: Interpretive Data Percent cell count reference ranges are not reported, since discordance with absolute values may lead to misinterpretation of CBC data. Current Interpretive Data was last revised on 2017. Testing performed by: [address] [address] Lymphocyte pct 35.8 % [facility] Comment: Interpretive Data Percent cell count reference ranges are not reported, since discordance with absolute values may lead to misinterpretation of CBC data. Current Interpretive Data was last revised on 2017. Testing performed by: [address] [address] Monocyte pct 14.8 % [facility] Comment: Interpretive Data Percent cell count reference ranges are not reported, since discordance with absolute values may lead to misinterpretation of CBC data. Current Interpretive Data was last revised on 2017. Testing performed by: [address] [address] Eosinophil pct 4.4 % [facility] Comment: Interpretive Data Percent cell count reference ranges are not reported, since discordance with absolute values may lead to misinterpretation of CBC data. Current Interpretive Data was last revised on 2017. Testing performed by: [address] [address] Basophil pct 0.5 % LISHA ANAYA Comment: Interpretive Data Percent cell count reference ranges are not reported, since discordance with absolute values may lead to misinterpretation of CBC data. Current Interpretive Data was last revised on 2017. Testing performed by: [address] [address] Blood 06/04/2025 9:32 AM CDT 06/04/2025 9:34 AM CDT us Jason Solis MD LAB BLOOD ORDERABLES Final Re sult LISHA ANAYA [facility] Department [place] [address] * (ABNORMAL) CBC with auto differential (06/04/2025 9:32 AM CDT) WBC 5.87 3.80 - 9.90 K/cumm Comment:Testing performed by : [address] [address] Hgb 10.9(L) 13.0 - 17.5 g/dL LISHA ANAYA Comment:Testing performed by : [address] [address] Hct 32.3(L) 38.9 - 50.3 % LISHA ANAYA Comment:Testing performed by : [address] [address] Plt 142(L) 150 - 400 K/cumm LISHA ANAYA Comment:Testing performed by : [address] [address] MPV 8.4(L) 9.1 - 12.3 fL LISHA ANAYA Comment:Testing performed by : [address] [address] RBC 3.23(L) 4.30 - 5.80 M/cumm LISHA ANAYA Comment:Testing performed by : [address] [address] MCV 100.0(H) 81.3 - 96.4 fL LISAH ANAYA Comment:Testing performed by : [address] [address] MCH 33.7(H) 27.1 - 33.3 pg LISHA ANAYA Comment:Testing performed by : [address] [address] MCHC 33.7 32.3 - 35.7 g/dL LISHA ANAYA Comment:Testing performed by : [address] [address] RDW CV 12.1 11.1 - 14.9 % LISHA Comment:Testing performed by : [address] [address] RDW SD 44.4 35.7 - 48.1 fL LISHA Comment:Testing performed by : [address] [address] NRBC abs 0.00 0.00 - 0.01 K/cumm LISHA Comment:Testing performed by : [address] [address] ANC Prelim 2.60 1.50 - 6.50 K/cumm LISHA Comment: Interpretive Data The rapid ANC is a preliminary automated count and may vary from the final ANC (Neut Abs) reported in the WBC differential that follows. Current interpretive data was last revised 2024. Testing performed by: [address] [address] Blood 06/04/2025 9:32 AM CDT 06/04/2025 9:34 AM CDT us Jason Solis MD LAB BLOOD ORDERABLES Final Re sult LISHA [address] [facility] Department [place] [address] * Lipase (06/04/2025 9:32 AM CDT) Lipase 35 10 - 99 Units/L Comment:Testing performed by : [address] [address] Blood 06/04/2025 9:32 AM CDT 06/04/2025 9:34 AM CDT Jason Solis MD LAB BLOOD ORDERABLES Final Re sult Performing Organization Address [facility] Co de Phone Number [address] [address] * Amylase (06/04/2025 9:32 AM CDT) Pathologist [facility] Amylase 47 30 - 99 Units/L Comment:Testing performed by : [address] [address] Blood 06/04/2025 9:32 AM CDT 06/04/2025 9:34 AM CDT Jason Solis MD LAB BLOOD ORDERABLES Final Re sult Performing Organization Address [facility] Co de Phone Number [address] [address] * Comprehensive metabolic panel (06/04/2025 9:32 AM CDT) Pathologist [facility] Sodium 139 135 - 145 mmol/L Comment:Testing performed by : [address] [address] Potassium, pl 4.8 3.3 - 4.9 mmol/L LISHA Comment:Testing performed by : [address] [address] Chloride 103 97 - 110 mmol/L LISHA Comment:Testing performed by : [address] [address] CO2 23 22 - 32 mmol/L LISHA Comment:Testing performed by : [address] [address] Anion gap 13 2 - 15 mmol/L LISHA Comment:Testing performed by : [address] [address] BUN 20 6 - 25 mg/dL LISHA Comment:Testing performed by : [address] [address] Creatinine 0.90 0.80 - 1.30 mg/dL LIHSA Comment:Testing performed by : [address] [address] Glucose 118 70 - 199 mg/dL LISHA Comment: Interpretive Data Fasting glucose >/= 126 mg/dl is diagnostic for diabetes. Fasting is defined as no caloric intake for at least 8 hours. Fasting glucose between 100 mg/dl to 125 mg/dl is diagnostic of prediabetes. In a patient with classic symptoms of hyperglycemia or hyperglycemic crisis, a random glucose >/= 200 mg/dl is diagnostic for diabetes. In the absence of unequivocal hyperglycemia, results should be confirmed by repeat testing. The classification and Diagnosis of Diabetes Diabetes Care 202; 46: S19-S40. Current interpretive data was last revised 2022. Testing performed by: [address] [address] Calcium 9.5 8.5 - 10.3 mg/dL LISHA Comment:Testing performed by : [address] [address] Bilirubin, total 0.4 0.1 - 1.2 mg/dL [facility] Comment:Testing performed by : [address] [address] Protein, pl 6.6 6.5 - 8.5 g/dL [facility] Comment:Testing performed by : [address] [address] Albumin 4.3 3.5 - 5.0 g/dL [facility] Comment:Testing performed by : [address] [address] Alk phos 71 40 - 130 Units/L [facility] Comment:Testing performed by : [address] [address] ALT 21 7 - 55 Units/L [facility] Comment:Testing performed by : [address] [address] AST 22 10 - 50 Units/L LISHA Comment:Testing performed by : [address] [address] Blood 06/04/2025 9:32 AM CDT 06/04/2025 11:36 AM CDT Jason Solis MD LAB BLOOD ORDERABLES Final Re sult LISHA [address] [facility] Department [place] [address] * MRI Thoracic Spine WO Contrast (05/24/2025 9:28 AM CDT) Anatomical Region Laterality Modality Spine N/A Magnetic Resonan ce 05/24/2025 11:2 9 AM CDT Narrative 05/24/2025 12:09 PM CDT EXAM DESCRIPTION: MRI THORACIC SPINE WO CONTRAST REASON FOR STUDY: spinal stenosis C/o mid back pain for at least 10 years, nki or sx, c/o some leg pain TECHNIQUE: Sagittal and Axial imaging includes T1, T2, STIR and gradient echo sequences. COMPARISON: No direct comparison is available. Relevant portions of the chest CT dated 01/18/2024. FINDINGS: ALIGNMENT: Anterior-posterior alignment is maintained. VERTEBRAE: There is no acute compression fracture in the thoracic spine. Occasional Schmorl's node. Ontm-zy-gpgpyblh endplate degeneration and marginal spur formation. HARDWARE: None in the spine. CORD: The evaluation of the thoracic cord is degraded by pulsation related artifact on the axial sequences. THORACIC DISCS: There is no significant disc bulge or spinal canal stenosis throughout the thoracic spine. Thickened ligamentum flavum and facet arthropathy contributes to mild right neural foraminal narrowing at T9-T10 and T10-T11. LOWER CERVICAL: Incompletely imaged. Degenerative changes without high-grade spinal canal stenosis. UPPER LUMBAR: Incompletely imaged. Degenerative changes without high-grade spinal canal stenosis. IMPRESSION: 1. Bymy-ur-kluvorzh thoracic spine degenerative changes. No significant spinal canal stenosis. 2. Neural foraminal narrowing and other findings as above. 3. Previous thoracic spine imaging is not available for comparison. THIS IS AN ELECTRONICALLY VERIFIED FINAL REPORT 05/24/2025 12:09 PM - Electronically signed by Sumit Eisenberg D.O. AP T: Report ID: [id number] Reading Location: [id number] Procedure Note Sumit Eisenberg DO - 05/24/2025 EXAM DESCRIPTION: MRI THORACIC SPINE WO CONTRAST REASON FOR STUDY: spinal stenosis C/o mid back pain for at least 10 years, nki or sx, c/o some leg pain TECHNIQUE: Sagittal and Axial imaging includes T1, T2, STIR and gradientecho sequences. COMPARISON: No direct comparison is available. Relevant portions of the chest CT dated 01/18/2024. FINDINGS: ALIGNMENT: Anterior-posterior alignment is maintained. VERTEBRAE: There is no acute compression fracture in the thoracic spine. Occasional Schmorl's node. Ocmg-mu-zlsgncxi endplate degeneration and marginal spur formation. HARDWARE: None in the spine. CORD: The evaluation of the thoracic cord is degraded by pulsationrelated artifact on the axial sequences. THORACIC DISCS: There is no significant disc bulge or spinal canalstenosis throughout the thoracic spine. Thickened ligamentum flavum and facet arthropathy contributes to mild right neural foraminal narrowing at T9-T10and T10-T11. LOWER CERVICAL: Incompletely imaged. Degenerative changes without high-grade spinal canal stenosis. UPPER LUMBAR: Incompletely imaged. Degenerative changes withouthigh-grade spinal canal stenosis. IMPRESSION: 1. Xxme-bp-hjgeeetx thoracic spine degenerative changes. No significant spinal canal stenosis. 2. Neural foraminal narrowing and other findings as above. 3. Previous thoracic spine imaging is not available for comparison. THIS IS AN ELECTRONICALLY VERIFIED FINAL REPORT 05/24/2025 12:09 PM - Electronically signed by Sumit Eisenberg D.O. AP T: Report ID: [id number] Reading Location: [id number] Henny [facility] [place] PROCEDURES Final R esult * CT Lumbar Spine WO Contrast (05/23/2025 9:54 AM CDT) Anatomical Region Laterality Modality Spine N/A Computed Tomogra phy 05/24/2025 11:3 2 AM CDT Narrative 05/24/2025 11:37 AM CDT EXAM DESCRIPTION: CT LUMBAR SPINE WO CONTRAST REASON FOR STUDY: Lumbar stenosis Pt complains of chronic lower back pain with bilateral sciatica, worsening over time. The left leg is worse than the right. History of lumbar stenosis. TECHNIQUE: Axial images acquired through the lumbar spine without intravenous contrast. Reconstructed coronal and sagittal MPR images reviewed. All images stored on PACS. Automated exposure control was used as a dose optimization technique for this examination. COMPARISON: Lumbar spine MRI dated 02/02/2025 and 11/21/2023. Lumbar spine radiographs dated 11/29/2023. FINDINGS: SEGMENTATION: There are 5 wvi-gjm-gqtoeav lumbar type vertebral bodies. Elongated right transverse process of L5 pseudo articulates with will sacrum. ALIGNMENT: Dextroconvex upper and levoconvex lower lumbar curvature. Grade 1 retrolisthesis of L4 on L5 and L5 on S1. VERTEBRAE: Lumbar vertebral body heights are maintained. Endplate degenerative changes and marginal spur formation ranging up to moderate to severe along the scoliotic curvature. Diffuse facet arthropathy. Bone marrow signal better assessed on the previous MRI dated 02/02/2025. DISC HEIGHT: Diffuse intervertebral disc height loss ranging up to moderate to severe along the scoliotic curvature. Vacuum disc phenomenon from L2-L3 through L5-S1. HARDWARE: None in the spine. INDIVIDUAL DISC LEVELS: Suboptimally evaluated by non myelographic CT technique. Please refer to the lumbar spine MRI dated 02/02/2025 for detailed level by level discussion. SOFT TISSUES: Aorto biiliac vascular stent graft. Surgical clips in the right upper abdomen. IMPRESSION: The lumbar disc degeneration ranging up to severe with thickened ligamentum flavum and facet arthropathy as seen on the lumbar spine MRI dated 02/02/2025. Continued spinal canal stenosis ranging up to severe and neural foraminal narrowing ranging up to severe. THIS IS AN ELECTRONICALLY VERIFIED FINAL REPORT 05/24/2025 11:37 AM - Electronically signed by Sumit WESLEY T: Report ID: [id number] Reading Location: [id number] Procedure Note Sumit Eisenberg, DO - 05/24/2025 EXAM DESCRIPTION: CT LUMBAR SPINE WO CONTRAST REASON FOR STUDY: Lumbar stenosis Pt complains of chronic lower back pain with bilateral sciatica, worsening over time. The left leg is worse than the right. History of lumbarstenosis. TECHNIQUE: Axial images acquired through the lumbar spine withoutintravenous contrast. Reconstructed coronal and sagittal MPR images reviewed. Allimages stored on PACS. Automated exposure control was used as a dose optimization technique forthis examination. COMPARISON: Lumbar spine MRI dated 02/02/2025 and 11/21/2023. Lumbarspine radiographs dated 11/29/2023. FINDINGS: SEGMENTATION: There are 5 oaq-pmb-epzanaz lumbar typevertebral bodies. Elongated right transverse process of L5 pseudo articulates withhemi sacrum. ALIGNMENT: Dextroconvex upper and levoconvex lower lumbar curvature.Grade 1 retrolisthesis of L4 on L5 and L5 on S1. VERTEBRAE: Lumbar vertebral body heights are maintained. Endplate degenerative changes and marginal spur formation ranging up to moderate to severe along the scoliotic curvature. Diffuse facet arthropathy. Bonemarrow signal better assessed on the previous MRI dated 02/02/2025. DISC HEIGHT: Diffuse intervertebral disc height loss ranging up tomoderate to severe along the scoliotic curvature. Vacuum disc phenomenon fromL2-L3 through L5-S1. HARDWARE: None in the spine. INDIVIDUAL DISC LEVELS: Suboptimally evaluated by non myelographic CT technique. Please refer to the lumbar spine MRI dated 02/02/2025 fordetailed level by level discussion. SOFT TISSUES: Aorto biiliac vascular stent graft. Surgical clips in the right upper abdomen. IMPRESSION: The lumbar disc degeneration ranging up to severe with thickenedligamentum flavum and facet arthropathy as seen on the lumbar spine MRI dated02/02/2025. Continued spinal canal stenosis ranging up to severe and neural foraminal narrowing ranging up to severe. THIS IS AN ELECTRONICALLY VERIFIED FINAL REPORT 05/24/2025 11:37 AM - Electronically signed by Sumit WESLEY T: Report ID: [id number] Reading Location: [place] [address] [address] Compa TA IMG CT PROCEDURES Final Re sult * (ABNORMAL) BCR/ABL p210 Quantitative, PCR (05/21/2025 12:49 PM CDT) BCR/ABL p210 Positive(A) [facility] BCR/ABL p210 % (IS) 0.51% [facility] BCR/ABL p210 Interpretation Positive: BCR::ABL1 major (p210) transcripts were detected. [facility] BCR/ABL p210 Specimen Blood [facility] BCR/ABL p210 Result Review Final report reviewed by: CHICHO Duran, KAYLA([facility])CM, Fig Washer, on 05/23/2025 10:46:30 CDT. [facility] Comment: Interpretive Data A summary of previous BCR::ABL1 major quantitative RT-PCR results for this patient performed in the [facility] may be found as a cumulative laboratory report in the Results Review section of the Medical Record. Method: The quantitative BCR::ABL1 assay is performed on the [employer] ([employer]) platform. RNA is extracted, converted to cDNA, and BCR::ABL1 and ABL1 cDNA targets are quantified by real-time PCR amplification. Results are reported as the percentage ratio of BCR::ABL1 fusion transcripts to ABL1 transcripts (BCR::ABL1/ABL1) on the International Scale (Jam HE, 2010). A BCR::ABL1 value of 0.1% on the International Scale represents a major molecular response in CML ([place] S, 2008). The analytical sensitivity of this assay is 0.0032% BCR::ABL1/ABL1. Due to assay non-linearity for the BCR::ABL1 p210 isoform at very high and low concentrations, results greater than 10% (above upper limit of quantification or ULOQ) will be reported as > 10% and results detected at less than 0.0032% (below lower limit of quantification or LLOQ) will be reported as < 0.0032% . Limitations: This test only detects the e13a2 and e14a2 BCR::ABL1 major isoforms. A negative result does not exclude the presence of the e1a2 (p190) BCR::ABL1 minor isoforms. False positive or negative results may occur with unusual BCR::ABL1 isoforms. FDA Comment: This test was developed and its performance characteristics determined by this [facility]. Peripheral blood testing has been cleared by the U.S. Food and Drug Administration (FDA). Alternative specimen types, including extracted RNA or bone marrow aspirates have not been cleared or approved by the U.S. Food and Drug Administration. FDA does not require those modifications to go through premarket FDA review. This test is used for clinical purposes. It should not be regarded as investigational or for research. This laboratory is certified under the Clinical Laboratory Improvement Amendments (CLIA) as qualified to perform high complexity clinical laboratory testing. Literature References: Dyllan S, Donn L, Derian N, et al. Desirable performance characteristics for BCR-ABL measurement on an international reporting scale to allow consistent interpretation of individual patient response and comparison of response rate between clinical trials. Blood 2008;113:1270-8387. Jam HE, Javier P, Ann P, et al. Establishment of the first World Health Organization International Genetic Reference Panel for quantification of BCR-ABL mRNA. Blood 2010;116:h820-716. GeneXBalluun BCR-ABL V2 Package Insert [id number], Rev B (July 2016). Xpert BCR-ABL Monitor, [id number], Rev A, January 2011. This test was performed at: [facility], [facility], [facility]#[id number], Jazmin King, Ph.D., [place], [address], [place] Current interpretive data was last revised 2023. Blood 05/21/2025 12:4 9 PM CDT 05/21/2025 2:01 PM CDT us Johanny Ralph [employer] LAB GENETIC TESTING F inal Result LISHA [facility] Department [place] [address] [facility] * eGFR (05/21/2025 12:49 PM CDT) eGFR 79 >=60 mL/min/1. 73 m2 Comment: Interpretive Data Reference Interval Normal >/= 90 mL/min/1.73m2 Mildly decreased* 60 - 89 mL/min/1.73m2 Mildly to moderately decreased 45 - 59 mL/min/1.73m2 Moderately to severely decreased 30 - 44 mL/min/1.73m2 Severely decreased 15 - 29 mL/min/1.73m2 Kidney Failure < 15 mL/min/1.73m2 *Relative to young adult level Estimated glomerular filtration rate is determined by the 2020 CKD-EPI equation recommended by the National Kidney Foundation (A Unifying Approach to GFR Estimation: Recommendations of the NKF-ASK Task Force on Reassessing the Inclusion of Race in Diagnosing Kidney Disease, JASN 202). The CKD-EPI equation should not be used for patients with unstable renal function and has not been validated in children and those over 70. Current interpretive data was last reviewed 2021. Blood 05/21/2025 12:4 9 PM CDT 05/21/2025 1:02 PM CDT us Johanny Ralph [employer] LAB BLOOD ORDERABLES Final Result [facility] Department [place] [address] * Differential, auto (05/21/2025 12:49 PM CDT) Neutrophil abs 2.21 1.50 - 6.50 K/cumm Comment:Testing performed by : [facility], [address] [place] [phone] Lymphocyte abs 2.26 0.80 - 3.30 K/cumm LISHA [facility] Comment:Testing performed by : [facility], [address] [place] [phone] Monocyte abs 0.57 0.20 - 0.80 K/cumm LISHA LAI Comment:Testing performed by : [facility], [address] [place] [phone] Eosinophil abs 0.30 0.00 - 0.50 K/cumm LISHA LAI Comment:Testing performed by : [facility], [address] [place] [phone] Basophil abs 0.03 0.00 - 0.10 K/cumm LISHA LAI Comment:Testing performed by : [facility], [address] [place] [phone] Neutrophil pct 41.1 % CERNER BJ Comment: Interpretive Data Percent cell count reference ranges are not reported, since discordance with absolute values may lead to misinterpretation of CBC data. Current Interpretive Data was last revised on 2017. Testing performed by: [facility], [address] [place] [phone] Lymphocyte pct 42.2 % CERNER BJ Comment: Interpretive Data Percent cell count reference ranges are not reported, since discordance with absolute values may lead to misinterpretation of CBC data. Current Interpretive Data was last revised on 2017. Testing performed by: [facility], [address] [place] [phone] Monocyte pct 10.6 % CERNER BJ Comment: Interpretive Data Percent cell count reference ranges are not reported, since discordance with absolute values may lead to misinterpretation of CBC data. Current Interpretive Data was last revised on 2017. Testing performed by: [facility], [address] [place] [phone] Eosinophil pct 5.5 % CERNER BJ Comment: Interpretive Data Percent cell count reference ranges are not reported, since discordance with absolute values may lead to misinterpretation of CBC data. Current Interpretive Data was last revised on 2017. Testing performed by: [facility], [address] [place] [phone] Basophil pct 0.6 % CERNER BJ Comment: Interpretive Data Percent cell count reference ranges are not reported, since discordance with absolute values may lead to misinterpretation of CBC data. Current Interpretive Data was last revised on 2017. Testing performed by: [facility], [address] [place] [phone] Blood 05/21/2025 12:4 9 PM CDT 05/21/2025 12:59 PM CDT Johanny Ralph [employer] LAB BLOOD ORDERABLES Final Result LISHA [facility] Department [place] [address] * (ABNORMAL) CBC with auto differential (05/21/2025 12:49 PM CDT) WBC 5.37 3.80 - 9.90 K/cumm Comment:Testing performed by : [facility], [address] [place] [address] Hgb 11.3(L) 13.0 - 17.5 g/dL CERSKYE LAI Comment:Testing performed by : [facility], [address] [place] [address] Hct 32.4(L) 38.9 - 50.3 % CERSKYE LAI Comment:Testing performed by : [facility], [address] [place] [address] Plt 178 150 - 400 K/cumm CERSKYE BJ Comment:Testing performed by : [facility], [address] [place] [address] MPV 6.3(L) 6.8 - 10.4 fL CERSKYE BJ Comment:Testing performed by : [facility], [address] [place] [address] RBC 3.16(L) 4.30 - 5.80 M/cumm CERSKYE BJ Comment:Testing performed by : [facility], [address] [place] [address] MCV 102.4(H) 81.3 - 96.4 fL CERSKYE BJ Comment:Testing performed by : [facility], [address] [place] [address] MCH 35.8(H) 27.1 - 33.3 pg CERSKYE BJ Comment:Testing performed by : [facility], [address] [place] [address] MCHC 35.0 32.3 - 35.7 g/dL CERSKYE BJ Comment:Testing performed by : [facility], [address] [place] [address] RDW CV 12.8 11.1 - 14.9 % [facility] Comment:Testing performed by : [facility], [address] [place] [phone] NRBC abs 0.00 0.00 - 0.01 K/cumm [facility] Comment:Testing performed by : [facility], [address] [place] [phone] Blood 05/21/2025 12:4 9 PM CDT 05/21/2025 12:59 PM CDT Johanny Ralph NP LAB BLOOD ORDERABLES Final Result Performing Organization Address City/[facility]/ZIP Co de Phone Number [facility] [place] [address] * Uric acid (05/21/2025 12:49 PM CDT) Uric acid 5.3 3.0 - 8.0 mg/dL Blood 05/21/2025 12:4 9 PM CDT 05/21/2025 1:02 PM CDT Johanny Ralph NP LAB BLOOD ORDERABLES Final Result Performing Organization Address City/[facility]/ZIP Co de Phone Number [facility] Department [place] [address] * Lipase (05/21/2025 12:49 PM CDT) Lipase 39 10 - 99 Units/L Blood 05/21/2025 12:4 9 PM CDT 05/21/2025 1:02 PM CDT Jason Solis MD LAB BLOOD ORDERABLES Final Re sult [facility] Department [place] [address] * Lactate dehydrogenase (LD) (05/21/2025 12:49 PM CDT) [facility] Lactate dehydrogenase (LDH) 196 100 - 250 Units/L Blood 05/21/2025 12:4 9 PM CDT 05/21/2025 1:02 PM CDT Johanny Ralph NP LAB BLOOD ORDERABLES Final Result Performing Organization Address City/[facility]/ZIP Co de Phone Number [facility] Department [place] [address] * Amylase (05/21/2025 12:49 PM CDT) [facility] Amylase 51 30 - 99 Units/L Blood 05/21/2025 12:4 9 PM CDT 05/21/2025 1:02 PM CDT Jason Solis MD LAB BLOOD ORDERABLES Final Re sult Performing Organization Address [facility] Co de Phone Number [facility] Department [place] [address] * Comprehensive metabolic panel (05/21/2025 12:49 PM CDT) [facility] Sodium 141 135 - 145 mmol/L Potassium, pl 4.2 3.3 - 4.9 mmol/L [facility] Chloride 106 97 - 110 mmol/L [facility] CO2 25 22 - 32 mmol/L [facility] Anion gap 10 2 - 15 mmol/L [facility] BUN 21 6 - 25 mg/dL [facility] Creatinine 0.99 0.80 - 1.30 mg/dL [facility] Glucose 104 70 - 199 mg/dL [facility] Comment: Interpretive Data Fasting glucose >/= 126 mg/dl is diagnostic for diabetes. Fasting is defined as no caloric intake for at least 8 hours. Fasting glucose between 100 mg/dl to 125 mg/dl is diagnostic of prediabetes. In a patient with classic symptoms of hyperglycemia or hyperglycemic crisis, a random glucose >/= 200 mg/dl is diagnostic for diabetes. In the absence of unequivocal hyperglycemia, results should be confirmed by repeat testing. The classification and Diagnosis of Diabetes Diabetes Care 2021; 46: S19-S40. Current interpretive data was last revised 2022. Calcium 8.9 8.5 - 10.3 mg/dL CERNER BJ Bilirubin, total 0.3 0.1 - 1.2 mg/dL CERNER BJ Protein, pl 6.5 6.5 - 8.5 g/dL CERNER BJ Albumin 4.2 3.5 - 5.0 g/dL CERNER BJ Alk phos 58 40 - 130 Units/L [facility] ALT 28 7 - 55 Units/L [facility] AST 33 10 - 50 Units/L CERNER [facility] Blood 05/21/2025 12:4 9 PM CDT 05/21/2025 1:02 PM CDT Johanny Ralph NP LAB BLOOD ORDERABLES Final Result [facility] Department [place] [address] * XR Scoliosis 2 or 3 Views (05/16/2025 10:04 AM CDT) Anatomical Region Laterality Modality Spine N/A Computed Radiogr aphy 05/23/2025 2:37 PM CDT Narrative 05/23/2025 2:39 PM CDT EXAM DESCRIPTION: 1. XR SCOLIOSIS AP AND LATERAL REASON FOR STUDY: Lumbar pain LBP radiates down both legs off and on x 15 yrs, NKI FINDINGS: Two views submitted with comparison 02/02/2025. Mild levoscoliosis of the inferior thoracic spine and rotary dextroscoliosis of the lumbar spine. Mild multilevel thoracic degenerative disc disease is present. Moderate to severe L2-S1 degenerative disc disease. Multilevel lumbar facet osteoarthritis. Straightening of the lumbar spine. Multilevel cervical degenerative disc disease. Arterial atherosclerosis and vascular stents are in place. IMPRESSION: 1. Mild S-shaped scoliosis of the thoracolumbar spine. 2. Mild multilevel thoracic degenerative disc disease. 3. Moderate to severe L2-S1 degenerative disc disease with multilevel lumbar facet osteoarthritis. THIS IS AN ELECTRONICALLY VERIFIED FINAL REPORT 05/23/2025 2:39 PM - Electronically signed by Fran Orozco M.D. T: Report ID: [id number] Reading Location: [id number] Procedure Note Fran Orozco MD - 05/23/2025 EXAM DESCRIPTION: 1. XR SCOLIOSIS AP AND LATERAL REASON FOR STUDY: Lumbar pain LBP radiates down both legs off and on x 15 yrs, NKI FINDINGS: Two views submitted with comparison 02/02/2025. Mild levoscoliosis of the inferior thoracic spine and rotarydextroscoliosis of the lumbar spine. Mild multilevel thoracic degenerative disc diseaseis present. Moderate to severe L2-S1 degenerative disc disease. Multilevel lumbar facet osteoarthritis. Straightening of the lumbar spine.Multilevel cervical degenerative disc disease. Arterial atherosclerosis and vascular stents are in place. IMPRESSION: 1. Mild S-shaped scoliosis of the thoracolumbar spine. 2. Mild multilevel thoracic degenerative disc disease. 3. Moderate to severe L2-S1 degenerative disc disease with multilevellumbar facet osteoarthritis. THIS IS AN ELECTRONICALLY VERIFIED FINAL REPORT 05/23/2025 2:39 PM - Electronically signed by Fran Orozco M.D. T: Report ID: [id number] Reading Location: [id number] Compa TA IM XR PROCEDURES Final Re sult * (ABNORMAL) BCR::ABL1 PCR quantitative p210 (05/07/2025 8:15 AM CDT) BCR/ABL p210 Positive(A) [facility] Comment:Testing performed by : [facility], [address]., [address] BCR/ABL p210 % (IS) 0.75% LISHA ANAYA Comment:Testing performed by : [facility], [address] [place]., [address] BCR/ABL p210 Interpretation Positive: BCR::ABL1 major (p210) transcripts were detected. LISHA ANAYA Comment:Testing performed by : [facility], [address] [place]., [address] BCR/ABL p210 Specimen Blood LISHA ANAYA Comment:Testing performed by : [facility], [address] [place]., [address] BCR/ABL p210 Result Review Final report reviewed by: CHICHO Tenorio, KAYLA([facility]), Fig Washer, on 05/09/2025 12:40:56 CDT. LISHA ANAYA Comment: Interpretive Data A summary of previous BCR::ABL1 major quantitative RT-PCR results for this patient performed in the [facility]ostics Lab may be found as a cumulative laboratory report in the Results Review section of the Medical Record. Method: The quantitative BCR::ABL1 assay is performed on the Gene[employer]Actor (TraveDoc) platform. RNA is extracted, converted to cDNA, and BCR::ABL1 and ABL1 cDNA targets are quantified by real-time PCR amplification. Results are reported as the percentage ratio of BCR::ABL1 fusion transcripts to ABL1 transcripts (BCR::ABL1/ABL1) on the International Scale (Jam HE, 2010). A BCR::ABL1 value of 0.1% on the International Scale represents a major molecular response in CML ([place]lington S, 2008). The analytical sensitivity of this assay is 0.0032% BCR::ABL1/ABL1. Due to assay non-linearity for the BCR::ABL1 p210 isoform at very high and low concentrations, results greater than 10% (above upper limit of quantification or ULOQ) will be reported as > 10% and results detected at less than 0.0032% (below lower limit of quantification or LLOQ) will be reported as < 0.0032% . Limitations: This test only detects the e13a2 and e14a2 BCR::ABL1 major isoforms. A negative result does not exclude the presence of the e1a2 (p190) BCR::ABL1 minor isoforms. False positive or negative results may occur with unusual BCR::ABL1 isoforms. FDA Comment: This test was developed and its performance characteristics determined by this Molecular Diagn[facility] Lab. Peripheral blood testing has been cleared by the U.S. Food and Drug Administration (FDA). Alternative specimen types, including extracted RNA or bone marrow aspirates have not been cleared or approved by the U.S. Food and Drug Administration. FDA does not require those modifications to go through premarket FDA review. This test is used for clinical purposes. It should not be regarded as investigational or for research. This laboratory is certified under the Clinical Laboratory Improvement Amendments (CLIA) as qualified to perform high complexity clinical laboratory testing. Literature References: Dyllan S, Donn L, Derian N, et al. Desirable performance characteristics for BCR-ABL measurement on an international reporting scale to allow consistent interpretation of individual patient response and comparison of response rate between clinical trials. Blood 2008;113:5442-7926. Jam HE, Javier P, Ann P, et al. Establishment of the first World Health Organization International Genetic Reference Panel for quantification of BCR-ABL mRNA. Blood 2010;116:d168-032. GeneXpert BCR-ABL V2 Package Insert [id number], Rev B (July 2016). Xpert BCR-ABL Monitor, [id number], Rev A, January 2011. This test was performed at: [facility], [facility], [facility]#[id number], Jazmin King, Ph.D., [place], [address], [place] Current interpretive data was last revised 2023. Testing performed by: [facility], [address] [place] [address], [place]., [address] Blood 05/07/2025 8:15 AM CDT 05/07/2025 11:15 AM CDT us Jason Solis MD LAB GENETIC TESTING Final Res ult [facility] [address] [facility] Department [place] [address] [facility] * CTA Abdomen Pelvis W WO Contrast (07/01/2021 12:50 PM CDT) Anatomical Region Laterality Modality Body N/A Computed Tomogra phy 07/01/2021 1:14 PM CDT Narrative 07/01/2021 1:26 PM CDT EXAM DESCRIPTION: CTA ABDOMEN PELVIS REASON FOR STUDY: AAA, post repair Abdominal aortic aneurysm (AAA) without rupture, AAA post repair Surgical History 7 items 11/11/2020 Replacement total knee 06/04/2010 Other surgical history Aortic Aneurysm Repair, AAA Endograft Date Unknown Appendectomy Date Unknown Arterial aneurysm repair Date Unknown Cardiac stent placement Date Unknown Hernia repair Date Unknown Shoulder arthroscopy TECHNIQUE: CTA scan of the abdomen and pelvis performed without and with intravenous and without oral contrast using helical scanning technique with dynamic intravenous contrast injection. Precontrast, arterial, and portal venous phase images of the abdomen and pelvis were acquired. Images reviewed with lung, soft tissue and bone windows. Reconstructed coronal and sagittal MPR images reviewed. All images stored on PACS. 3D MIP images rendered on scanning unit and reviewed at time of interpretation. Automated exposure control was used as a dose optimization technique for this examination. CONTRAST TYPE/DOSE: 100mL of IOVERSOL 350 MG IODINE/ML INTRAVENOUS SYRINGE injected via intravenous COMPARISON: 06/21/2020. FINDINGS: VASCULATURE: There is an endovascular stent graft extending from the juxtarenal abdominal aorta into the common iliac arteries bilaterally. A treats a infrarenal abdominal aortic aneurysm. The aneurysm sac is collapsed around the stent and is unchanged in size measuring 3.0 x 3.2 cm. No endoleak. CELIAC TRUNK: No flow limiting stenosis, dissection, or aneurysm. SUPERIOR MESENTERIC ARTERY: No flow limiting stenosis, dissection, or aneurysm. RIGHT RENAL ARTERY: Mild stenosis at the origin. LEFT RENAL ARTERY: Minimal stenosis at the origin. INFERIOR MESENTERIC ARTERY: Occluded at the origin secondary to the stent graft with reconstitution. AORTA: Mild to moderate atherosclerosis. No stenosis. ILIAC ARTERIES: Mild multifocal stenoses both external iliac arteries bilaterally. There is a moderate stenosis of the right SFA near the origin. And multifocal ifuy-ed-uabgpuiu stenosis of the left SFA. There is occlusion of the mid left internal iliac artery just beyond a lumbosacral branch with reconstitution distally. There is multifocal moderate stenoses of both internal iliac arteries. LOWER CHEST: No significant pulmonary abnormalities. No effusion. LIVER: Normal size. No identified cystic or solid masses. There is a cyst in segment 2. GALLBLADDER: Cholelithiasis without cholecystitis. BILE DUCTS: No intrahepatic or extrahepatic ductal dilatation. SPLEEN: Normal size. No focal lesions. PANCREAS: No identified cystic or solid masses. No significant calcifications. No adjacent inflammation or peripancreatic fluid collections. Pancreatic duct not dilated. ADRENALS: Normal. KIDNEYS/URINARY TRACT: There is a cyst in the right kidney without evidence of enhancement. The kidneys are otherwise normal without hydronephrosis. Normal bladder. GI: No evidence of obstruction. No bowel wall thickening. PERITONEUM: No ascites or free air. RETROPERITONEUM: No mass or adenopathy. REPRODUCTIVE: No significant abnormality. MUSCULOSKELETAL: There is spondylosis in the visualized spine, mild in severity. OTHER: Changes from right inguinal hernia repair. IMPRESSION: 1. Unchanged infrarenal aorta endovascular stent repair without endoleak. 2. 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 THIS IS AN ELECTRONICALLY VERIFIED FINAL REPORT 07/01/2021 1:26 PM - Electronically signed by Jonathan NEGRON T: Report ID: [id number] Reading Location: [place] [id number] Procedure Note Jonathan Ellington MD - 07/01/2021 EXAM DESCRIPTION: CTA ABDOMEN PELVIS REASON FOR STUDY: AAA, post repair Abdominal aortic aneurysm (AAA)without rupture, AAA post repair Surgical History 7 items 11/11/2020 Replacement total knee 06/04/2010 Other surgical history AorticAneurysm Repair, AAA Endograft Date Unknown Appendectomy Date UnknownArterial aneurysm repair Date Unknown Cardiac stent placement Date Unknown Hernia repair Date Unknown Shoulder arthroscopy TECHNIQUE: CTA scan of the abdomen and pelvis performed without and with intravenous and without oral contrast using helical scanning techniquewith dynamic intravenous contrast injection. Precontrast, arterial, and portal venous phase images of the abdomen and pelvis were acquired. Imagesreviewed with lung, soft tissue and bone windows. Reconstructed coronal andsagittal MPR images reviewed. All images stored on PACS. 3D MIP images renderedon scanning unit and reviewed at time of interpretation. Automated exposure control was used as a dose optimization technique for this examination. CONTRAST TYPE/DOSE: 100mL of IOVERSOL 350 MG IODINE/ML INTRAVENOUSSYRINGE injected via intravenous COMPARISON: 06/21/2020. FINDINGS: VASCULATURE: There is an endovascular stent graft extending from the juxtarenal abdominal aorta into the common iliac arteries bilaterally. A treats a infrarenal abdominal aortic aneurysm. The aneurysm sac iscollapsed around the stent and is unchanged in size measuring 3.0 x 3.2 cm. Noendoleak. CELIAC TRUNK: No flow limiting stenosis, dissection, or aneurysm. SUPERIOR MESENTERIC ARTERY: No flow limiting stenosis, dissection, or aneurysm. RIGHT RENAL ARTERY: Mild stenosis at the origin. LEFT RENAL ARTERY: Minimal stenosis at the origin. INFERIOR MESENTERIC ARTERY: Occluded at the origin secondary to the stent graft with reconstitution. AORTA: Mild to moderate atherosclerosis. No stenosis. ILIAC ARTERIES: Mild multifocal stenoses both external iliac arteries bilaterally. There is a moderate stenosis of the right SFA near theorigin. And multifocal liop-fm-gmfhbyrp stenosis of the left SFA. There isocclusion of the mid left internal iliac artery just beyond a lumbosacral branchwith reconstitution distally. There is multifocal moderate stenoses of both internal iliac arteries. LOWER CHEST: No significant pulmonary abnormalities. No effusion. LIVER: Normal size. No identified cystic or solid masses. There is acyst in segment 2. GALLBLADDER: Cholelithiasis without cholecystitis. BILE DUCTS: No intrahepatic or extrahepatic ductal dilatation. SPLEEN: Normal size. No focal lesions. PANCREAS: No identified cystic or solid masses. No significant calcifications. No adjacent inflammation or peripancreatic fluidcollections. Pancreatic duct not dilated. ADRENALS: Normal. KIDNEYS/URINARY TRACT: There is a cyst in the right kidney withoutevidence of enhancement. The kidneys are otherwise normal without hydronephrosis. Normal bladder. GI: No evidence of obstruction. No bowel wall thickening. PERITONEUM: No ascites or free air. RETROPERITONEUM: No mass or adenopathy. REPRODUCTIVE: No significant abnormality. MUSCULOSKELETAL: There is spondylosis in the visualized spine, mild in severity. OTHER: Changes from right inguinal hernia repair. IMPRESSION: 1. Unchanged infrarenal aorta endovascular stent repair without endoleak. 2. New occlusion or severe stenosis of the mid aspect of left internaliliac artery. THIS IS AN ELECTRONICALLY VERIFIED FINAL REPORT 07/01/2021 1:26 PM - Electronically signed by Jonathan NEGRON T: Report ID: [id number] Reading Location: [id number] Josué Lou MD IMG CT PROCEDURES Final Res ult from Last 3 Months or Most Recently Relevant to Health Maintenance Insurance [employer] ADVANTRA [facility]ETNA [facility]NA [facility] ADVANTRA Advance Directives For more information, please contact: [phone] Documents on File Type Date Recorded Patient Marketing Administrative Assistant Expl anation ADVANCE DIRECTIVE 10/29/2020 12:00 AM TEENA R OF PROFESSOR OF BUSINESS FINANCIAL/MEDICAL * Full Code (Latest Code Status on File) Date Activated Date Inactivated Comments 09/07/2024 2:18 PM 09/08/2024 7:46 PM Care Teams Tea Plantation Worker Relationship Specialty Start Date End Date Lestre Delarosa MD [address] [facility] [address] [address] [address] PCP - General 10/29/20 Zachariah Mcintosh MD [address] [facility] [address] [place] [address] [address] Consulting Physician Cardiology 09/09/20 [place] [address] [facility] [address] [place] [address] Nurse Practitioner Movie Extra 05/09/24 Jason Solis MD [address] DIV IM BONE MARROW TRANSPLANT, [address] [place] [address] Medical Oncologist/Steam Hand Medical Oncology 07/27/24 Larry Henry MD [address] [facility] [address] [place] [address] [place] [address] Consulting Physician Orthopedic Surgery 09/08/24
--- OUTSIDE RECORDS SUMMARY | 2025-08-01 07:25 | XMS_ITS | Encounter Summary ---
Author Organization [facility] Facility Care Team Providers Care Intravenous Therapy Nurse Name Role Phone Lester Delarosa MD Primary Care Prov ider Zachariah Mcintosh MD Unavailable [phone] Larry Henry MD Primary Care Provider [phone] Lester Delarosa MD Primary Care Prov ider Uy, Jason Mehta MD Unavailable Lydia Ram NP Unavailable [phone] Uy, Jason Mehta MD Unavailable [phone] Uy, Jason Mehta MD Unavailable [phone] Larry Henry MD Unavailable [phone] Encounter Details Date Type Department Care Team (Latest Contact Info) Description 11/26/2015 Orders Only [facility] CLINCONV ProviderPatricia MD [address] [place] [address] Social History Tobacco Use Types Packs/Day Years Used Date Smoking Tobacco: Former Cigarettes Q uit: 09/13/2007 Alcohol Use Standard Drinks/Week Comments Yes 0 (1 standard drink = 0.6 oz pur e alcohol) Sex and Gender Information Value Date Recorded Sex Assigned at Not on file 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 Gender Identity Not on file Sexual Orientation [...] documented as of this encounter Care Teams Intravenous Therapy Nurse Relationship Specialty Start Date End Date Lester Delarosa MD PCP - General 04/17/13 10/16/20 Larry Henry MD [address] [facility] [address] [address] [place] [address] PCP - General 10/17/20 10/28/20 Lester Delarosa MD PCP - General 10/29/20 Zachariah Mcintosh MD [address] [facility] [address] [place] [address] [address] Consulting Physician Cardiology 09/09/20 Jason Solis MD [address] [facility] [address] [place] [address] [place] [address] Medical Oncologist/Liquefaction Supervisor Medical Oncology 12/29/23 06/18/25 Lydia Ram, MOHSEN [address] [address] Nurse Practitioner Psychological Operations Officer 05/09/24 Jason Solis MD [address] [place] [address] DIV IM BONE MARROW TRANSPLANT, 5TH, [address] [place] [address] Medical Oncologist/Liquefaction Supervisor Medical Oncology 07/27/24 06/18/25 Jason Solis MD [address] DIV IM BONE MARROW TRANSPLANT, [address] [place] [address] Medical Oncologist/Liquefaction Supervisor Medical Oncology 07/27/24 Larry Henry MD [address] [address] Consulting Physician Orthopedic Surgery 09/08/24 documented as of this encounter
--- OUTSIDE RECORDS SUMMARY | 2025-08-01 07:25 | XMS_ITS | Encounter Summary ---
Author Organization [facility] Facility Care Team Providers Care Pipeline Welder Name Role Phone Lester Delarosa MD Primary Care Prov ider Lester Delarosa MD Primary Care Prov ider Zachariah Mcintosh MD Unavailable [phone] Larry Henry MD Primary Care Provider [phone] Lester Dlearosa MD Primary Care Prov ider Uy, Jason Mehta MD Unavailable [phone] Lydia Ram NP Unavailable [phone] Uy, Jason Mehta MD Unavailable [phone] Uy, Jason Mehta MD Unavailable [phone] Larry Henry MD Unavailable [phone] Encounter Details Date Type Department Care Team (Latest Contact Info) Description 06/04/2010 Orders Only [facility]G CLINCONV ProviderPatricia MD [address] [place] [address] Social History Tobacco Use Types Packs/Day Years Used Date Smoking Tobacco: Never Assessed Sex and Gender Information Value Date Recorded Sex Assigned at Not on file 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 Gender Identity Not on file Sexual Orientation [...] documented as of this encounter Care Teams Pipeline Welder Relationship Specialty Start Date End Date Lester Delarosa MD PCP - General 04/17/13 10/16/20 Lester Delarosa MD PCP - General 07/21/11 04/16/13 Larry Henry MD [address] [facility] [address] [address] [place] [address] PCP - General 10/17/20 10/28/20 Lester Delarosa MD PCP - General 10/29/20 Zachariah Mcintosh MD [address] [facility] [address] [address] [address] Consulting Physician Cardiology 09/09/20 Jason Solis MD [address] [facility] [address] [place] [address] Medical Oncologist/Box Turner Medical Oncology 12/29/23 06/18/25 [place] [address] [address] [place] [address] Nurse Practitioner Spindle Plumber 05/09/24 Jason Solis MD [address] [place] [address] DIV IM BONE MARROW TRANSPLANT, 5TH, [address] [place] [address] Medical Oncologist/Box Turner Medical Oncology 07/27/24 06/18/25 Jason Solis MD [address] DIV IM BONE MARROW TRANSPLANT, [address] [place] [address] Medical Oncologist/Box Turner Medical Oncology 07/27/24 Larry Henry MD [address] [address] Consulting Physician Orthopedic Surgery 09/08/24 documented as of this encounter
--- OUTSIDE RECORDS SUMMARY | 2025-08-01 07:25 | XMS_ITS | Encounter Summary ---
Author Organization [facility] Facility Care Team Providers Care Retail Attendant Name Role Phone Lester Delarosa MD Primary Care Prov ider Zachariah Mcintosh MD Unavailable [phone] Larry Henry MD Primary Care Provider [phone] Lester Delarosa MD Primary Care Prov ider Uy, Jason Mehta MD Unavailable Lydia Ram NP Unavailable [phone] Uy, Jason Mehta MD Unavailable [phone] Uy, Jason Mehta MD Unavailable [phone] Larry Henry MD Unavailable [phone] Encounter Details Date Type Department Care Team (Latest Contact Info) Description 11/29/2015 Orders Only [facility] CLINCONV ProviderPatricia MD [address] [place] [address] Social History Tobacco Use Types Packs/Day Years Used Date Smoking Tobacco: Former Cigarettes Q uit: 09/13/2007 Alcohol Use Standard Drinks/Week Comments Yes 0 (1 standard drink = 0.6 oz pur e alcohol) Sex and Gender Information Value Date Recorded Sex Assigned at Not on file Legal 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 Gender Identity Not on file Sexual Orientation [...] documented as of this encounter Care Teams Retail Attendant Relationship Specialty Start Date End Date Lester Delarosa MD PCP - General 04/17/13 10/16/20 Larry Henry MD [address] [facility] [address] [address] [place] [address] PCP - General 10/17/20 10/28/20 Lester Delarosa MD PCP - General 10/29/20 Zachariah Mcintosh MD [address] [facility] [address] [address] [address] Consulting Physician Cardiology 09/09/20 Jason Solis MD [address] [facility] [address] [place] [address] Medical Oncologist/Aluminum Fabrication Supervisor Medical Oncology 12/29/23 06/18/25 Lydia Ram, MOHSEN [address] [address] Nurse Practitioner Clinical Appeals Auditor 05/09/24 Jason Solis MD [address] [place] [address] DIV IM BONE MARROW TRANSPLANT, 5TH, [address] [place] [address] Medical Oncologist/Aluminum Fabrication Supervisor Medical Oncology 07/27/24 06/18/25 Jason Solis MD [address] DIV IM BONE MARROW TRANSPLANT, [address] [place] [address] Medical Oncologist/Aluminum Fabrication Supervisor Medical Oncology 07/27/24 Larry Henry MD [address] [address] Consulting Physician Orthopedic Surgery 09/08/24 documented as of this encounter
[2025-08-01] MEDS: ONDANSETRON INJ 4 MG/2 ML VIAL IV PUSH (07:32)
[2025-08-01] MEDS: MORPHINE SULFATE (*CRX) 4 MG/ML INJ IV PUSH (07:32)
[2025-08-01] MEDS: SODIUM CHLORIDE 0.9% IV 1,000 ML 999 ML IV CONT (07:32)
== END 2025-08-01 08:33 | disposition home or self-care (01) ==
PROVIDERS: Emergency Medicine; Emergency Provider Emergency Medicine; PCP Family Medicine Adolescent Medicine
DX: R10.31 Right lower quadrant pain (principal); Z95.5 Presence of coronary angioplasty implant and graft; Z96.651 Presence of right artificial knee joint; Z87.891 Personal history of nicotine dependence
CPT/HCPCS: 36415; 74176; 80053; 81003; 83690; 85025; 96361; 96374; 96375; 99284; J2270; J2405; J7030